=== PATIENT | female | born 1960 | race African-American/Black ===

== ENCOUNTER → 2017-10-05 15:17 | Outpatient (CLI) | payer OTHER, SELFPAY ==
--- NOTE | 2017-10-05 15:23 | DI.MG.S_ITS ---
BILATERAL DIGITAL SCREENING MAMMOGRAM 3D/2D WITH CAD: 10/05/2017 CLINICAL: Routine screening. Family history of breast cancer. Comparison is made to exams dated: 02/15/2016 mammogram, 03/02/2014 mammogram, and 02/01/2013 mammogram - [facility]. The tissue of both breasts is heterogeneously dense. This may lower the sensitivity of mammography. Current study was also evaluated with a Computer Aided Detection (CAD) system. There is a benign intramammary node in the upper outer right breast at posterior depth which demonstrates a fatty hilum on RMLO Tomosynthesis slice 10/57. No significant masses, calcifications, or other findings are seen in either breast. IMPRESSION: BENIGN There is no mammographic evidence of malignancy. A 1 year screening mammogram is recommended. This exam was interpreted at Station ID: [id number]. NOTE: For mammograms, a report in lay terms will be sent to the patient. Approximately 15% of breast malignancies will not be visualized mammographically. In the management of a palpable breast mass, a negative mammogram must not discourage biopsy of a clinically suspicious lesion. Electronically Signed By: Stevan Harris M.D. ecl/:10/05/2017 20:56:53 letter sent: Normal Exam ACR BI-RADS Category 2: Benign Finding(s) 3342F
== END ==
PROVIDERS: PCP Nurse Practitioner Family; Visit Provider Nurse Practitioner Family
DX: Z12.31 Encounter for screening mammogram for malignant neoplasm of breast (principal); Z80.3 Family history of malignant neoplasm of breast
CPT/HCPCS: 77063; 77067

== ENCOUNTER → 2018-03-01 19:58 | Outpatient (CLI) | payer OTHER, SELFPAY ==
--- NOTE | 2018-03-01 20:01 | DI.RAD.S_ITS ---
PROCEDURE: XR CHEST 2V INDICATIONS: cough and lymph node swelling TECHNIQUE: 2 views of the chest were acquired. COMPARISON: None. FINDINGS: Surgical changes and devices: None. Lungs and pleura: No pleural effusions or pneumothorax. Lungs are clear. Mediastinum: Mediastinal contours are normal. Heart size is normal. Bones and chest wall: No suspicious bony abnormalities. Soft tissues appear unremarkable. IMPRESSION: Normal for age, source of current cough symptoms is not seen. Dictated by: Frank Garcia M.D. on 03/02/2018 at 8:31 Approved by: Frank Garcia M.D. on 03/02/2018 at 8:32
== END ==
PROVIDERS: PCP Nurse Practitioner Family; Visit Provider Physician Assistant
DX: R05 Cough (principal); R59.0 Localized enlarged lymph nodes
CPT/HCPCS: 71046

== ENCOUNTER → 2018-03-16 12:07 | Outpatient (CLI) | payer OTHER, BC, SELFPAY ==
--- NOTE | 2018-03-16 | DI.CT.S_ITS ---
PROCEDURE: CT SOFT TISSUE NECK W CON INDICATIONS: LEFT NECK MASS TECHNIQUE: After the administration of intravenous contrast, 3.0 mm axial sections acquired from the sella to the aortic arch. Additional oblique axial 3.0 mm sections acquired through the pharynx. 3 mm thick coronal and sagittal reformats were generated. For radiation dose reduction, the following was used: automated exposure control. COMPARISON: [facility], CT, SOFT TISSUE NECK W CONTRAST, 03/25/2013, 10:31. FINDINGS: Image quality: Excellent. Lymph nodes: The site of the clinically palpable left neck mass is marked by a soft tissue marker, as on series 2 image 42. At this site, a normal appearing (not enlarged) lymph node can be seen, measuring 7 x 5 mm in greatest axial dimension. Several borderline prominent lymph nodes can be seen throughout the neck. Overall, these lymph nodes are smaller than in 2014. Vessels: Visualized vasculature appears patent. Neck spaces: The oropharynx, nasopharynx, and pharynx demonstrate no mucosal lesions. The vocal cords, false vocal cords, pyriform sinuses, epiglottis, vallecula, and tongue base all appear normal. Glands: The parotid and submandibular glands appear normal. Thyroid gland demonstrates no significant CT abnormality. Miscellaneous: Visualized brain and orbits appear normal. There is a subpleural nodule seen involving the left upper lobe anteriorly, as on series 3 image 34 that measures 5 mm. This is not seen on the 2014 study. Superficial soft tissues appear normal. Bones: No suspicious bony lesions. Visualized sinuses and mastoids appear unremarkable. IMPRESSION: There is a nonenlarged lymph node seen at the site of the clinically palpable abnormality. Several borderline prominent lymph nodes are seen throughout the neck, which are overall smaller than in 2014. Incidental note is made of a single subpleural 5 mm nodule within the left upper lobe, which most likely represents a subpleural lymph node. At clinical discretion, please consider a dedicated chest CT for further evaluation for additional potential pulmonary nodules elsewhere. Dictated by: Ismael Hines M.D. on 03/16/2018 at 14:37 Approved by: Ismael Hines M.D. on 03/16/2018 at 14:43
== END ==
PROVIDERS: PCP Nurse Practitioner Family; Visit Provider Otolaryngology
DX: R22.1 Localized swelling, mass and lump, neck (principal)
CPT/HCPCS: 70491; Q9967

== ENCOUNTER 2018-10-13 16:45 | Outpatient (RCR) | payer BC, SELFPAY ==
--- NOTE | 2018-09-09 17:00 | PT.OIE ---
Current Diagnoses Pain in thoracic spine (09/09/18) Past Medical History (Last Reviewed 08/13/18 @ 10:52 by Marito Turcios MD) Eczema (Chronic ~2007) Vision disorder (Chronic) Past Surgical History (Last Reviewed 08/13/18 @ 10:52 by Marito Turcios MD) Anesthesia (Resolved) History of foot surgery (Inactive) History of third molar tooth extraction (Inactive) Status post breast biopsy (Inactive ~1978) Provider Visit Care Team Role Provider Type Marito Turcios MD Attending Provider Physician Primary Care Provider Specialty: Internal Medicine Address: [address] [place] [address], [facility] Email: [email or web address] Physical Therapy Initial Evaluation PT-OP-A Visit Information Start: 09/09/18 12:33 Freq: Status: Active Protocol: Document 09/09/18 15:01 LRN (Rec: 09/09/18 16:33 LRN [id number]) Out-Patient Physical Therapy Visit Information Visit Information Visit Type Initial Evaluation Visit Start Time 15:02 Visit Stop Time 16:00 Total Visit Minutes 58 Visit Number 1 Number of PSYCHIATRIC ASSISTANT Visits 0 Evaluation Information Evaluation Date 09/09/18 Precautions Precautions Hx of Oral surgery for L jaw cyst and 5 yrs later a benign tumor. PT-OP-B Current Condition Start: 09/09/18 12:33 Freq: Status: Active Protocol: Document 09/09/18 15:01 LRN (Rec: 09/09/18 16:33 LRN [id number]) Current Condition History of Current Condition Onset Date December 2017 Current Complaints Ache pain in the neck, posterior upper back across shoulders and radiates History of Current Condition Insidious onset of upper neck and posterior shoulder pain, bilaterally. Sometimes it radiates into the R shoulder and back of the arm. Pt is R handed. She thinks maybe it is because of ergonomics at work. No longer has that job of sitting at a desk. 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 She doesn't have to sit as much and can sit or stand to work. Overuse of R arm causes pain. Only supine lying alleviates the pain. Prior Treatments and Tests Did patient care representative for 3 months without resolution or help of pain alleviation. Chiropractic X-rays and was told she was not aligned. Massages have not helped. Future Testing and Treatments Planned Next appt with Dr Turcios is 09/23/18, but pt is planning on extending the date until at least 4 weeks of therapy is done. Treatment Goals Patient/Caregiver Goals Pt goal is to determine the problem and to treat it for full resolution of pain. Prior Functional Status Baseline Function- ADL's Independent Baseline Function- Mobility Independent Baseline Function- Recreation/Hobbies Play golf Current Functional Impairments (Reported) Functional Limitations- Work/School Hindering pt's capacity to function at full capacity. Functional Limitations- Recreation/ Limited in tolerance to knit Hobbies 15'. 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 R Breast surgery 1978 for benign tumor removal Foot surgeries. PT-OP-C Subjective Start: 09/09/18 12:33 Freq: Status: Active Protocol: Document 09/09/18 15:01 LRN (Rec: 09/09/18 16:33 LRN [id number]) Patient Questionnaires Neck Disability Index NDI Score 5 Neck Disability Index Impairment 1 to 19% Impaired (Score 1-9) Oswestry Low Back Index Oswestry Score 9 Oswestry Impairment 1 to 19% Impaired (Score 1-19) Quick Dash- Upper Extremity Quick Dash UE Score 16 Quick Dash UE Impairment 1 to 19% Impaired (Score 1-19) OP-PT Pain Assessment Pain Assessment Grid Paper Pain Assessment Grid Completed Yes Location R shoulder Pain Location Details Posterior R shoulder Intensity 5 Scale Used Numeric (1 - 10) Description Aching Burning Frequency Intermittent Pain Aggravating Factors Activity Pain Alleviating Factors Medication Lying Supine Other Pain Alleviating Factors IBP Patient Stated Pain Goal Painfree Between shoulder blades Pain Location Details Mauricio Posterior scapula and intrascapular region Intensity 4 Description Aching Burning Radiating Tingling Frequency Intermittent Radiating Location R shoulder and posterior arm Variations/Patterns 0-4/10 Pain Aggravating Factors Activity Pain Alleviating Factors Medication Lying Supine Other Pain Alleviating Factors IBP Patient Stated Pain Goal Painfree PT-OP-E Functional Tests Start: 09/09/18 12:33 Freq: Status: Active Protocol: Document 09/09/18 15:01 LRN (Rec: 09/09/18 16:33 LRN [id number]) Functional Tests Apley's Scratch Test Action 2- Left T3 Action 2- Right T4 Action 3- Left T4 Action 3- Right T4 PT-OP-F Manual Assessment Start: 09/09/18 12:33 Freq: Status: Active Protocol: Document 09/09/18 15:01 LRN (Rec: 09/09/18 16:33 LRN [id number]) Manual Assessments Soft Tissue Assessment Soft Tissue Mobility Assessment Muscle guarding in R intrascapular region. Joint Mobility Assessment Joint Mobility Assessment Decreased T/S facet joint mobility on left for inferior glide & extension. T/S facets stuck in R rotation . PT-OP-H Neuro Start: 09/09/18 12:33 Freq: Status: Active Protocol: Document 09/09/18 15:01 LRN (Rec: 09/09/18 16:33 LRN [id number]) Sensation Evaluation Gross Sensation Gross Sensation WNL PT-OP-J Posture/Palpation/Skin Start: 09/09/18 12:33 Freq: Status: Active Protocol: Document 09/09/18 15:01 LRN (Rec: 09/09/18 16:33 LRN [id number]) Posture Evaluation Position Standing Evaluation View All positions Head/C-Spine Posture Side Bent Left Forward Head T-Spine Posture Flattened Rotation Right Shoulder Posture (L) Rounded Arm Posture (L) Internally Rotated (R) Internally Rotated Pelvis Posture Anteriorly Tilted Weight Distribution Balanced Palpation Assessment Location L Intrascapular region Palpation Location R Intrascapular region Palpation Findings Soft Tissue Tightness L neck Palpation Location Paraspinals, and anterior/ posterior scalenes UT Palpation Findings Soft Tissue Tightness Tenderness R Intrascapular region Palpation Location R intrascapular region Palpation Findings Soft Tissue Tightness Tenderness PT-OP-K Range of Motion Start: 09/09/18 12:33 Freq: Status: Active Protocol: Document 09/09/18 15:01 LRN (Rec: 09/09/18 16:33 LRN [id number]) Cervical Spine Range of Motion Cervical Spine Active Percentage Testing Position Sitting Flexion 100 Extension 100 Rotation Left 100 Rotation Right 100 Lateral Flexion Left 84 Lateral Flexion Right 100 ROM Limitations Soft Tissue Tightness Comments AROM (in degrees): SB: 32 deg' s left, 38 deg's right. Lumbar Spine Range of Motion Lumbar Spine Active Degrees Testing Position Standing Comments Movement measured from C7 to L5. Trunk Flexion: 150 deg's FB taken at C7 with 110 deg's FB taken at L5 Trunk Ext: 75 deg's BB taken at C7 with 30 deg's BB taken at L5 Sidebending: Left - Thoracic spine is straight, Right - Thoracic spine is curved. Rotation: Left - Thoracic spine is straight, Right - Thoracic spine is curved. Shoulder Goniometric Range of Motion Shoulder Right Active Shoulder ROM WFL Yes Testing Position Sitting Internal Rotation Behind Back (text) T4 with thumb Left Active Shoulder ROM WFL Yes Testing Position Sitting Flexion 178 Internal Rotation Behind Back (text) T4 with thumb Shoulder ROM Limitations Shoulder ROM Limitations Soft Tissue Tightness Comments L shoulder flexion PT-OP-M Strength Start: 09/09/18 12:33 Freq: Status: Active Protocol: Document 09/09/18 15:01 LRN (Rec: 09/09/18 16:33 LRN [id number]) Cervical Spine Strength Cervical Spine Manual Muscle Testing Testing Position Sitting Reason Not Measured WFL Trunk Strength Trunk Manual Muscle Testing Testing Position Sitting Shoulder Strength Shoulder Manual Muscle Testing Right Reason Not Measured WFL Comments Pain on Contralateral intrascapular region (T3-T5) with testing. Pt is R hand dominant. Left Reason Not Measured WFL Comments Pain on Contralateral intrascapular region (T3-T5) with testing. PT-OP-Q Treatments Start: 09/09/18 12:33 Freq: Status: Active Protocol: Document 09/09/18 15:01 LRN (Rec: 09/09/18 16:33 LRN [id number]) Therapeutic Exercises Standing Exercises Posterior shoulder stretch Standing Exercise Name L arm reaching over R shoulder with assist given to L elbow Side left Comments Pt unable to feel a intrascapular stretch; therefore DC'd. Doorway stretch Standing Exercise Name Rhomboid stretch Side left Equipment Used Doorway Manual Therapy Treatment Joint Mobilizations Thoracic Spine Joint T3 on T4 Direction To correct for a R rotated spine Grade II Body Position Prone Comments Pt had onset of pain; therefore discontinued for now . Self-Care/Home Management Treatment Education Patient Education Home Exercise Program Posture Other Education Educated pt in proper sitting posture to prevent slouching and I/S pt in proper sitting posture. Activities Self-Care/Home Management Activities I/S and reviewed for HEP: doorway stretch for L intrascapular region. PT-OP-T Assessment and Plan Start: 09/09/18 12:33 Freq: Status: Active Protocol: Document 09/09/18 15:01 LRN (Rec: 09/09/18 16:33 LRN [id number]) Physical Therapy Assessment Rehab Potential Rehabilitation Potential Good Evaluation Complexity Number of Personal Factors/Comorbidities 1-2 Number of Body Systems Impaired 4 or More Clinical Presentation at Evaluation Evolving Impairments Impairments Activity Tolerance Pain Posture Soft Tissue Mobility Strength Other Concerns Barriers to Rehabilitation Attendance may be a hindrance due to new work schedule, with pt coming after work from [place]. Goals Five Impairment Pt demonstrates poor awareness of proper posturing during sitting/work. Short Term Goal (STG) Pt will be able to demonstrate while in therapy proper sitting posture and will report improved posture sitting at her monitor at work . STG Duration 10/07/18 Four Impairment Pain limiting pt's ability to lift her golf clubs Staff Assistant Goal (LTG) Pt will be able to return to golfing at her prior level of function. LTG Duration 11/11/18 Three Impairment Pt pain limiting ability to knit > 15' Staff Assistant Goal (LTG) Pt will be able to knit no less than 45' or at prior level of function without pain . LTG Duration 11/11/18 Two Impairment Intermittent Neck, upper back pain rated 4/10 at worst Short Term Goal (STG) Decrease onset of pain and decrease pain to no greater than 2/10 STG Duration 10/07/18 Staff Assistant Goal (LTG) Decrease neck & upper back pain to 0/10 with ADLs and work. LTG Duration 11/11/18 One Impairment Lacks appropriate HEP. Staff Assistant Goal (LTG) Pt will be independent with a self care HEP. LTG Duration 11/11/18 Assessment Summary Assessment Pt presents with a mechanical dysfunction of the Thoracic spine, a notable Dowagers hump , a R rotation of T3-T7, soft tissue dysfunction and pain with UE use. Pt has mild decrease in Cervical R sidebend, otherwise cervical mobility and strength is normal. Her shoulder mobility is slightly limited with combined mobility of ER/AB and her strength although not limited, it is hindered by intrascapular pain on the opposite side of arm usage. The pt also demonstrates poor awareness of correct posturing in sitting; therefore effecting her during her while at work and post work hours. The pt will benefit from skilled physical therapy to improve thoracic positioning and stabilization in order to decrease pain with UE use and posturing. Physical Therapy Plan Frequency and Duration Frequency of Treatment 2x/Week Plan of Care Start Date 09/09/18 Plan of Care End Date 11/11/18 Therapeutic Interventions Therapeutic Interventions Aquatic Therapy Home Exercise Program Joint Mobilizations Manual Therapy Neuromuscular Re-education Patient/Caregiver Education Self-Care/Home Management Soft Tissue Mobilization Taping Therapeutic Exercises Modalities Cold Pack/Ice Massage Electric Stimulation Hot Packs Ultrasound Next Visit Focus/Plan Next Note Type Treatment Note Next Visit Plan Check UE strength (C6 - T1), and UE gross sensation/reflex. Might try starting with intrascapular STM to decrease muscle tension, followed by manual therapy for thoracic distraction and correction for a R rotated T/S and restricted ext mobility on the left. End with Interferential and Hot or cold to T/S, until mechanical dysfunction corrected, then progress to strengthening for stabilization.
--- NOTE | 2018-09-13 17:13 | PT.OTN ---
Current Diagnoses Pain in thoracic spine (09/13/18) Physical Therapy Treatment Note PT-OP-A Visit Information Start: 09/09/18 12:33 Freq: Status: Active Protocol: Document 09/13/18 17:03 EA (Rec: 09/13/18 17:13 EA [id number]) Out-Patient Physical Therapy Visit Information Visit Information Visit Type Treatment Note Visit Start Time 15:15 Visit Stop Time 16:00 Total Visit Minutes 38 Visit Number 2 PT-OP-B Current Condition Start: 09/09/18 12:33 Freq: Status: Active Protocol: Document 09/09/18 15:01 LRN (Rec: 09/09/18 16:33 LRN [id number]) Current Condition History of Current Condition Onset Date December 2017 Current Complaints Ache pain in the neck, posterior upper back across shoulders and radiates History of Current Condition Insidious onset of upper neck and posterior shoulder pain, bilaterally. Sometimes it radiates into the R shoulder and back of the arm. Pt is R handed. She thinks maybe it is because of ergonomics at work. No longer has that job of sitting at a desk. 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 She doesn't have to sit as much and can sit or stand to work. Overuse of R arm causes pain. Only supine lying alleviates the pain. Prior Treatments and Tests Did medication care manager for 3 months without resolution or help of pain alleviation. Chiropractic X-rays and was told she was not aligned. Massages have not helped. Future Testing and Treatments Planned Next appt with Dr Turcios is 09/23/18, but pt is planning on extending the date until at least 4 weeks of therapy is done. Treatment Goals Patient/Caregiver Goals Pt goal is to determine the problem and to treat it for full resolution of pain. Prior Functional Status Baseline Function- ADL's Independent Baseline Function- Mobility Independent Baseline Function- Recreation/Hobbies Play golf Current Functional Impairments (Reported) Functional Limitations- Work/School Hindering pt's capacity to function at full capacity. Functional Limitations- Recreation/ Limited in tolerance to knit Hobbies 15'. 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 R Breast surgery 1978 for benign tumor removal Foot surgeries. PT-OP-C Subjective Start: 09/09/18 12:33 Freq: Status: Active Protocol: Document 09/13/18 17:03 EA (Rec: 09/13/18 17:13 EA [id number]) OP-PT Subjective Patient Comments Patient Comments Pt reports intermittent right finger tingling sensation. Patient Reported Progress Same PT-OP-E Functional Tests Start: 09/09/18 12:33 Freq: Status: Active Protocol: Document 09/09/18 15:01 LRN (Rec: 09/09/18 16:33 LRN [id number]) Functional Tests Apley's Scratch Test Action 2- Left T3 Action 2- Right T4 Action 3- Left T4 Action 3- Right T4 PT-OP-F Manual Assessment Start: 09/09/18 12:33 Freq: Status: Active Protocol: Document 09/09/18 15:01 LRN (Rec: 09/09/18 16:33 LRN [id number]) Manual Assessments Soft Tissue Assessment Soft Tissue Mobility Assessment Muscle guarding in R intrascapular region. Joint Mobility Assessment Joint Mobility Assessment Decreased T/S facet joint mobility on left for inferior glide & extension. T/S facets stuck in R rotation . PT-OP-H Neuro Start: 09/09/18 12:33 Freq: Status: Active Protocol: Document 09/09/18 15:01 LRN (Rec: 09/09/18 16:33 LRN [id number]) Sensation Evaluation Gross Sensation Gross Sensation WNL PT-OP-J Posture/Palpation/Skin Start: 09/09/18 12:33 Freq: Status: Active Protocol: Document 09/09/18 15:01 LRN (Rec: 09/09/18 16:33 LRN [id number]) Posture Evaluation Position Standing Evaluation View All positions Head/C-Spine Posture Side Bent Left Forward Head T-Spine Posture Flattened Rotation Right Shoulder Posture (L) Rounded Arm Posture (L) Internally Rotated (R) Internally Rotated Pelvis Posture Anteriorly Tilted Weight Distribution Balanced Palpation Assessment Location L Intrascapular region Palpation Location R Intrascapular region Palpation Findings Soft Tissue Tightness L neck Palpation Location Paraspinals, and anterior/ posterior scalenes UT Palpation Findings Soft Tissue Tightness Tenderness R Intrascapular region Palpation Location R intrascapular region Palpation Findings Soft Tissue Tightness Tenderness PT-OP-K Range of Motion Start: 09/09/18 12:33 Freq: Status: Active Protocol: Document 09/09/18 15:01 LRN (Rec: 09/09/18 16:33 LRN [id number]) Cervical Spine Range of Motion Cervical Spine Active Percentage Testing Position Sitting Flexion 100 Extension 100 Rotation Left 100 Rotation Right 100 Lateral Flexion Left 84 Lateral Flexion Right 100 ROM Limitations Soft Tissue Tightness Comments AROM (in degrees): SB: 32 deg' s left, 38 deg's right. Lumbar Spine Range of Motion Lumbar Spine Active Degrees Testing Position Standing Comments Movement measured from C7 to L5. Trunk Flexion: 150 deg's FB taken at C7 with 110 deg's FB taken at L5 Trunk Ext: 75 deg's BB taken at C7 with 30 deg's BB taken at L5 Sidebending: Left - Thoracic spine is straight, Right - Thoracic spine is curved. Rotation: Left - Thoracic spine is straight, Right - Thoracic spine is curved. Shoulder Goniometric Range of Motion Shoulder Right Active Shoulder ROM WFL Yes Testing Position Sitting Internal Rotation Behind Back (text) T4 with thumb Left Active Shoulder ROM WFL Yes Testing Position Sitting Flexion 178 Internal Rotation Behind Back (text) T4 with thumb Shoulder ROM Limitations Shoulder ROM Limitations Soft Tissue Tightness Comments L shoulder flexion PT-OP-M Strength Start: 09/09/18 12:33 Freq: Status: Active Protocol: Document 09/09/18 15:01 LRN (Rec: 09/09/18 16:33 LRN [id number]) Cervical Spine Strength Cervical Spine Manual Muscle Testing Testing Position Sitting Reason Not Measured WFL Trunk Strength Trunk Manual Muscle Testing Testing Position Sitting Shoulder Strength Shoulder Manual Muscle Testing Right Reason Not Measured WFL Comments Pain on Contralateral intrascapular region (T3-T5) with testing. Pt is R hand dominant. Left Reason Not Measured WFL Comments Pain on Contralateral intrascapular region (T3-T5) with testing. PT-OP-Q Treatments Start: 09/09/18 12:33 Freq: Status: Active Protocol: Document 09/13/18 17:03 JAMES (Rec: 09/13/18 17:13 EA [id number]) Manual Therapy Treatment Soft Tissue Mobilization 1 Body Location Both traps, B Parcervicals and parathracis, B rhomboids, B scapular borders Mobilization Type Myofascial Release Rolling Sustained Pressure Trigger Point Release Intensity/Depth Moderate Body Position Prone PT-OP-R Modalities Start: 09/09/18 12:33 Freq: Status: Active Protocol: Document 09/13/18 17:03 EA (Rec: 09/13/18 17:13 EA [id number]) Electric Stimulation Electric Stimulation Interferential Current (IFC) Body Location Both Rhomboids, Parathoracis Duration (Minutes) 15 Intensity 16 Combined With Heat/Cold Hot Pack PT-OP-T Assessment and Plan Start: 09/09/18 12:33 Freq: Status: Active Protocol: Document 09/13/18 17:03 EA (Rec: 09/13/18 17:13 EA [id number]) Physical Therapy Assessment Assessment Summary Assessment Tolerated treatment well. Physical Therapy Plan Next Visit Focus/Plan Next Note Type Treatment Note Next Visit Plan Check UE strength (C6 - T1), and UE gross sensation/reflex. Might try starting with intrascapular STM to decrease muscle tension, followed by manual therapy for thoracic distraction and correction for a R rotated T/S and restricted ext mobility on the left. End with Interferential and Hot or cold to T/S, until mechanical dysfunction corrected, then progress to strengthening for stabilization.
--- NOTE | 2018-09-15 16:16 | PT.OTN ---
Current Diagnoses Pain in thoracic spine (09/15/18) Physical Therapy Treatment Note PT-OP-A Visit Information Start: 09/09/18 12:33 Freq: Status: Active Protocol: Document 09/15/18 15:50 EA (Rec: 09/15/18 15:54 EA [id number]) Out-Patient Physical Therapy Visit Information Visit Information Visit Type Treatment Note Visit Start Time 15:15 Visit Stop Time 16:00 Total Visit Minutes 40 Visit Number 3 PT-OP-B Current Condition Start: 09/09/18 12:33 Freq: Status: Active Protocol: Document 09/09/18 15:01 LRN (Rec: 09/09/18 16:33 LRN [id number]) Current Condition History of Current Condition Onset Date December 2017 Current Complaints Ache pain in the neck, posterior upper back across shoulders and radiates History of Current Condition Insidious onset of upper neck and posterior shoulder pain, bilaterally. Sometimes it radiates into the R shoulder and back of the arm. Pt is R handed. She thinks maybe it is because of ergonomics at work. No longer has that job of sitting at a desk. 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 She doesn't have to sit as much and can sit or stand to work. Overuse of R arm causes pain. Only supine lying alleviates the pain. Prior Treatments and Tests Did customer care representative for 3 months without resolution or help of pain alleviation. Chiropractic X-rays and was told she was not aligned. Massages have not helped. Future Testing and Treatments Planned Next appt with Dr Turcios is 09/23/18, but pt is planning on extending the date until at least 4 weeks of therapy is done. Treatment Goals Patient/Caregiver Goals Pt goal is to determine the problem and to treat it for full resolution of pain. Prior Functional Status Baseline Function- ADL's Independent Baseline Function- Mobility Independent Baseline Function- Recreation/Hobbies Play golf Current Functional Impairments (Reported) Functional Limitations- Work/School Hindering pt's capacity to function at full capacity. Functional Limitations- Recreation/ Limited in tolerance to knit Hobbies 15'. 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 R Breast surgery 1978 for benign tumor removal Foot surgeries. PT-OP-C Subjective Start: 09/09/18 12:33 Freq: Status: Active Protocol: Document 09/15/18 15:50 EA (Rec: 09/15/18 15:54 EA [id number]) OP-PT Subjective Patient Comments Patient Comments I'm surprised that Im not sore after last session. PT-OP-E Functional Tests Start: 09/09/18 12:33 Freq: Status: Active Protocol: Document 09/09/18 15:01 LRN (Rec: 09/09/18 16:33 LRN [id number]) Functional Tests Apley's Scratch Test Action 2- Left T3 Action 2- Right T4 Action 3- Left T4 Action 3- Right T4 PT-OP-F Manual Assessment Start: 09/09/18 12:33 Freq: Status: Active Protocol: Document 09/09/18 15:01 LRN (Rec: 09/09/18 16:33 LRN [id number]) Manual Assessments Soft Tissue Assessment Soft Tissue Mobility Assessment Muscle guarding in R intrascapular region. Joint Mobility Assessment Joint Mobility Assessment Decreased T/S facet joint mobility on left for inferior glide & extension. T/S facets stuck in R rotation . PT-OP-H Neuro Start: 09/09/18 12:33 Freq: Status: Active Protocol: Document 09/09/18 15:01 LRN (Rec: 09/09/18 16:33 LRN [id number]) Sensation Evaluation Gross Sensation Gross Sensation WNL PT-OP-J Posture/Palpation/Skin Start: 09/09/18 12:33 Freq: Status: Active Protocol: Document 09/09/18 15:01 LRN (Rec: 09/09/18 16:33 LRN [id number]) Posture Evaluation Position Standing Evaluation View All positions Head/C-Spine Posture Side Bent Left Forward Head T-Spine Posture Flattened Rotation Right Shoulder Posture (L) Rounded Arm Posture (L) Internally Rotated (R) Internally Rotated Pelvis Posture Anteriorly Tilted Weight Distribution Balanced Palpation Assessment Location L Intrascapular region Palpation Location R Intrascapular region Palpation Findings Soft Tissue Tightness L neck Palpation Location Paraspinals, and anterior/ posterior scalenes UT Palpation Findings Soft Tissue Tightness Tenderness R Intrascapular region Palpation Location R intrascapular region Palpation Findings Soft Tissue Tightness Tenderness PT-OP-K Range of Motion Start: 09/09/18 12:33 Freq: Status: Active Protocol: Document 09/09/18 15:01 LRN (Rec: 09/09/18 16:33 LRN [id number]) Cervical Spine Range of Motion Cervical Spine Active Percentage Testing Position Sitting Flexion 100 Extension 100 Rotation Left 100 Rotation Right 100 Lateral Flexion Left 84 Lateral Flexion Right 100 ROM Limitations Soft Tissue Tightness Comments AROM (in degrees): SB: 32 deg' s left, 38 deg's right. Lumbar Spine Range of Motion Lumbar Spine Active Degrees Testing Position Standing Comments Movement measured from C7 to L5. Trunk Flexion: 150 deg's FB taken at C7 with 110 deg's FB taken at L5 Trunk Ext: 75 deg's BB taken at C7 with 30 deg's BB taken at L5 Sidebending: Left - Thoracic spine is straight, Right - Thoracic spine is curved. Rotation: Left - Thoracic spine is straight, Right - Thoracic spine is curved. Shoulder Goniometric Range of Motion Shoulder Right Active Shoulder ROM WFL Yes Testing Position Sitting Internal Rotation Behind Back (text) T4 with thumb Left Active Shoulder ROM WFL Yes Testing Position Sitting Flexion 178 Internal Rotation Behind Back (text) T4 with thumb Shoulder ROM Limitations Shoulder ROM Limitations Soft Tissue Tightness Comments L shoulder flexion PT-OP-M Strength Start: 09/09/18 12:33 Freq: Status: Active Protocol: Document 09/09/18 15:01 LRN (Rec: 09/09/18 16:33 LRN [id number]) Cervical Spine Strength Cervical Spine Manual Muscle Testing Testing Position Sitting Reason Not Measured WFL Trunk Strength Trunk Manual Muscle Testing Testing Position Sitting Shoulder Strength Shoulder Manual Muscle Testing Right Reason Not Measured WFL Comments Pain on Contralateral intrascapular region (T3-T5) with testing. Pt is R hand dominant. Left Reason Not Measured WFL Comments Pain on Contralateral intrascapular region (T3-T5) with testing. PT-OP-Q Treatments Start: 09/09/18 12:33 Freq: Status: Active Protocol: Document 09/15/18 15:50 EA (Rec: 09/15/18 15:54 EA [id number]) Manual Therapy Treatment Soft Tissue Mobilization 1 Body Location Both traps, B Parcervicals and parathracis, B rhomboids, B scapular borders Mobilization Type Myofascial Release Rolling Sustained Pressure Trigger Point Release Intensity/Depth Moderate Body Position Prone PT-OP-R Modalities Start: 09/09/18 12:33 Freq: Status: Active Protocol: Document 09/15/18 15:50 EA (Rec: 09/15/18 15:54 EA [id number]) Electric Stimulation Electric Stimulation Interferential Current (IFC) Body Location Both Rhomboids, Parathoracis Duration (Minutes) 15 Intensity 23 Combined With Heat/Cold Hot Pack PT-OP-T Assessment and Plan Start: 09/09/18 12:33 Freq: Status: Active Protocol: Document 09/15/18 15:50 EA (Rec: 09/15/18 15:54 EA [id number]) Physical Therapy Assessment Assessment Summary Assessment Patient had less tender spots at this time. Cont. with current plan. Physical Therapy Plan Next Visit Focus/Plan Next Note Type Treatment Note Next Visit Plan Begin with postural execises
--- NOTE | 2018-09-20 16:31 | PT.OTN ---
Current Diagnoses Pain in thoracic spine (09/20/18) Physical Therapy Treatment Note PT-OP-A Visit Information Start: 09/09/18 12:33 Freq: Status: Active Protocol: Document 09/20/18 10:26 AMB (Rec: 09/20/18 10:29 AMB [id number]) Out-Patient Physical Therapy Visit Information Visit Information Visit Type Treatment Note Visit Start Time 07:30 Visit Stop Time 08:30 Total Visit Minutes 60 Visit Number 4 PT-OP-B Current Condition Start: 09/09/18 12:33 Freq: Status: Active Protocol: Document 09/09/18 15:01 LRN (Rec: 09/09/18 16:33 LRN [id number]) Current Condition History of Current Condition Onset Date December 2017 Current Complaints Ache pain in the neck, posterior upper back across shoulders and radiates History of Current Condition Insidious onset of upper neck and posterior shoulder pain, bilaterally. Sometimes it radiates into the R shoulder and back of the arm. Pt is R handed. She thinks maybe it is because of ergonomics at work. No longer has that job of sitting at a desk. 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 She doesn't have to sit as much and can sit or stand to work. Overuse of R arm causes pain. Only supine lying alleviates the pain. Prior Treatments and Tests Did health care facility administrator for 3 months without resolution or help of pain alleviation. Chiropractic X-rays and was told she was not aligned. Massages have not helped. Future Testing and Treatments Planned Next appt with Dr Turcios is 09/23/18, but pt is planning on extending the date until at least 4 weeks of therapy is done. Treatment Goals Patient/Caregiver Goals Pt goal is to determine the problem and to treat it for full resolution of pain. Prior Functional Status Baseline Function- ADL's Independent Baseline Function- Mobility Independent Baseline Function- Recreation/Hobbies Play golf Current Functional Impairments (Reported) Functional Limitations- Work/School Hindering pt's capacity to function at full capacity. Functional Limitations- Recreation/ Limited in tolerance to knit Hobbies 15'. 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 R Breast surgery 1978 for benign tumor removal Foot surgeries. PT-OP-C Subjective Start: 09/09/18 12:33 Freq: Status: Active Protocol: Document 09/20/18 10:26 AMB (Rec: 09/20/18 10:29 AMB [id number]) OP-PT Subjective Patient Comments Patient Comments I think I am getting a little better PT-OP-E Functional Tests Start: 09/09/18 12:33 Freq: Status: Active Protocol: Document 09/09/18 15:01 LRN (Rec: 09/09/18 16:33 LRN [id number]) Functional Tests Apley's Scratch Test Action 2- Left T3 Action 2- Right T4 Action 3- Left T4 Action 3- Right T4 PT-OP-F Manual Assessment Start: 09/09/18 12:33 Freq: Status: Active Protocol: Document 09/09/18 15:01 LRN (Rec: 09/09/18 16:33 LRN [id number]) Manual Assessments Soft Tissue Assessment Soft Tissue Mobility Assessment Muscle guarding in R intrascapular region. Joint Mobility Assessment Joint Mobility Assessment Decreased T/S facet joint mobility on left for inferior glide & extension. T/S facets stuck in R rotation . PT-OP-H Neuro Start: 09/09/18 12:33 Freq: Status: Active Protocol: Document 09/09/18 15:01 LRN (Rec: 09/09/18 16:33 LRN [id number]) Sensation Evaluation Gross Sensation Gross Sensation WNL PT-OP-J Posture/Palpation/Skin Start: 09/09/18 12:33 Freq: Status: Active Protocol: Document 09/09/18 15:01 LRN (Rec: 09/09/18 16:33 LRN [id number]) Posture Evaluation Position Standing Evaluation View All positions Head/C-Spine Posture Side Bent Left Forward Head T-Spine Posture Flattened Rotation Right Shoulder Posture (L) Rounded Arm Posture (L) Internally Rotated (R) Internally Rotated Pelvis Posture Anteriorly Tilted Weight Distribution Balanced Palpation Assessment Location L Intrascapular region Palpation Location R Intrascapular region Palpation Findings Soft Tissue Tightness L neck Palpation Location Paraspinals, and anterior/ posterior scalenes UT Palpation Findings Soft Tissue Tightness Tenderness R Intrascapular region Palpation Location R intrascapular region Palpation Findings Soft Tissue Tightness Tenderness PT-OP-K Range of Motion Start: 09/09/18 12:33 Freq: Status: Active Protocol: Document 09/09/18 15:01 LRN (Rec: 09/09/18 16:33 LRN [id number]) Cervical Spine Range of Motion Cervical Spine Active Percentage Testing Position Sitting Flexion 100 Extension 100 Rotation Left 100 Rotation Right 100 Lateral Flexion Left 84 Lateral Flexion Right 100 ROM Limitations Soft Tissue Tightness Comments AROM (in degrees): SB: 32 deg' s left, 38 deg's right. Lumbar Spine Range of Motion Lumbar Spine Active Degrees Testing Position Standing Comments Movement measured from C7 to L5. Trunk Flexion: 150 deg's FB taken at C7 with 110 deg's FB taken at L5 Trunk Ext: 75 deg's BB taken at C7 with 30 deg's BB taken at L5 Sidebending: Left - Thoracic spine is straight, Right - Thoracic spine is curved. Rotation: Left - Thoracic spine is straight, Right - Thoracic spine is curved. Shoulder Goniometric Range of Motion Shoulder Right Active Shoulder ROM WFL Yes Testing Position Sitting Internal Rotation Behind Back (text) T4 with thumb Left Active Shoulder ROM WFL Yes Testing Position Sitting Flexion 178 Internal Rotation Behind Back (text) T4 with thumb Shoulder ROM Limitations Shoulder ROM Limitations Soft Tissue Tightness Comments L shoulder flexion PT-OP-M Strength Start: 09/09/18 12:33 Freq: Status: Active Protocol: Document 09/09/18 15:01 LRN (Rec: 09/09/18 16:33 LRN [id number]) Cervical Spine Strength Cervical Spine Manual Muscle Testing Testing Position Sitting Reason Not Measured WFL Trunk Strength Trunk Manual Muscle Testing Testing Position Sitting Shoulder Strength Shoulder Manual Muscle Testing Right Reason Not Measured WFL Comments Pain on Contralateral intrascapular region (T3-T5) with testing. Pt is R hand dominant. Left Reason Not Measured WFL Comments Pain on Contralateral intrascapular region (T3-T5) with testing. PT-OP-Q Treatments Start: 09/09/18 12:33 Freq: Status: Active Protocol: Document 09/20/18 07:30 AMB (Rec: 09/20/18 16:30 AMB [id number]) Therapeutic Activity Therapeutic Activity 1 Name ergonomics body mechanics instruction Comments For sitting, cooking, Manual Therapy Treatment Soft Tissue Mobilization 1 Body Location Both traps, B Parcervicals and parathracis, B rhomboids, B scapular borders Mobilization Type Myofascial Release Rolling Sustained Pressure Trigger Point Release Intensity/Depth Moderate Body Position Prone Joint Mobilizations Thoracic Spine Joint T2-T6 Direction PAs Grade II Body Position Prone PT-OP-R Modalities Start: 09/09/18 12:33 Freq: Status: Active Protocol: Document 09/20/18 10:26 AMB (Rec: 09/20/18 10:29 AMB [id number]) Electric Stimulation Electric Stimulation Interferential Current (IFC) Body Location Both Rhomboids, Parathoracis Duration (Minutes) 15 Intensity 19 Combined With Heat/Cold Hot Pack PT-OP-T Assessment and Plan Start: 09/09/18 12:33 Freq: Status: Active Protocol: Document 09/20/18 10:26 AMB (Rec: 09/20/18 10:29 AMB [id number]) Physical Therapy Assessment Assessment Summary Assessment Continue to educate in body mechanics posture, continue manual therapy and progress to strengthening. Physical Therapy Plan Next Visit Focus/Plan Next Note Type Treatment Note Next Visit Plan Begin with postural execises
--- NOTE | 2018-09-23 17:58 | PT.OTN ---
Current Diagnoses Pain in thoracic spine (09/23/18) Physical Therapy Treatment Note PT-OP-A Visit Information Start: 09/09/18 12:33 Freq: Status: Active Protocol: Document 09/23/18 16:45 HH (Rec: 09/23/18 17:50 HH [email or web address]) Out-Patient Physical Therapy Visit Information Visit Information Visit Type Treatment Note Visit Start Time 16:45 Visit Stop Time 17:40 Total Visit Minutes 55 Visit Number 5 PT-OP-B Current Condition Start: 09/09/18 12:33 Freq: Status: Active Protocol: Document 09/09/18 15:01 LRN (Rec: 09/09/18 16:33 LRN [id number]) Current Condition History of Current Condition Onset Date December 2017 Current Complaints Ache pain in the neck, posterior upper back across shoulders and radiates History of Current Condition Insidious onset of upper neck and posterior shoulder pain, bilaterally. Sometimes it radiates into the R shoulder and back of the arm. Pt is R handed. She thinks maybe it is because of ergonomics at work. No longer has that job of sitting at a desk. 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 She doesn't have to sit as much and can sit or stand to work. Overuse of R arm causes pain. Only supine lying alleviates the pain. Prior Treatments and Tests Did customer care voice consultant for 3 months without resolution or help of pain alleviation. Chiropractic X-rays and was told she was not aligned. Massages have not helped. Future Testing and Treatments Planned Next appt with Dr Turcios is 09/23/18, but pt is planning on extending the date until at least 4 weeks of therapy is done. Treatment Goals Patient/Caregiver Goals Pt goal is to determine the problem and to treat it for full resolution of pain. Prior Functional Status Baseline Function- ADL's Independent Baseline Function- Mobility Independent Baseline Function- Recreation/Hobbies Play golf Current Functional Impairments (Reported) Functional Limitations- Work/School Hindering pt's capacity to function at full capacity. Functional Limitations- Recreation/ Limited in tolerance to knit Hobbies 15'. 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 R Breast surgery 1978 for benign tumor removal Foot surgeries. PT-OP-C Subjective Start: 09/09/18 12:33 Freq: Status: Active Protocol: Document 09/23/18 16:45 HH (Rec: 09/23/18 17:50 HH [email or web address]) OP-PT Subjective Patient Comments Patient Comments I am getting better until today. Im a bit sore PT-OP-E Functional Tests Start: 09/09/18 12:33 Freq: Status: Active Protocol: Document 09/09/18 15:01 LRN (Rec: 09/09/18 16:33 LRN [id number]) Functional Tests Apley's Scratch Test Action 2- Left T3 Action 2- Right T4 Action 3- Left T4 Action 3- Right T4 PT-OP-F Manual Assessment Start: 09/09/18 12:33 Freq: Status: Active Protocol: Document 09/09/18 15:01 LRN (Rec: 09/09/18 16:33 LRN [id number]) Manual Assessments Soft Tissue Assessment Soft Tissue Mobility Assessment Muscle guarding in R intrascapular region. Joint Mobility Assessment Joint Mobility Assessment Decreased T/S facet joint mobility on left for inferior glide & extension. T/S facets stuck in R rotation . PT-OP-H Neuro Start: 09/09/18 12:33 Freq: Status: Active Protocol: Document 09/09/18 15:01 LRN (Rec: 09/09/18 16:33 LRN [id number]) Sensation Evaluation Gross Sensation Gross Sensation WNL PT-OP-J Posture/Palpation/Skin Start: 09/09/18 12:33 Freq: Status: Active Protocol: Document 09/09/18 15:01 LRN (Rec: 09/09/18 16:33 LRN [id number]) Posture Evaluation Position Standing Evaluation View All positions Head/C-Spine Posture Side Bent Left Forward Head T-Spine Posture Flattened Rotation Right Shoulder Posture (L) Rounded Arm Posture (L) Internally Rotated (R) Internally Rotated Pelvis Posture Anteriorly Tilted Weight Distribution Balanced Palpation Assessment Location L Intrascapular region Palpation Location R Intrascapular region Palpation Findings Soft Tissue Tightness L neck Palpation Location Paraspinals, and anterior/ posterior scalenes UT Palpation Findings Soft Tissue Tightness Tenderness R Intrascapular region Palpation Location R intrascapular region Palpation Findings Soft Tissue Tightness Tenderness PT-OP-K Range of Motion Start: 09/09/18 12:33 Freq: Status: Active Protocol: Document 09/09/18 15:01 LRN (Rec: 09/09/18 16:33 LRN [id number]) Cervical Spine Range of Motion Cervical Spine Active Percentage Testing Position Sitting Flexion 100 Extension 100 Rotation Left 100 Rotation Right 100 Lateral Flexion Left 84 Lateral Flexion Right 100 ROM Limitations Soft Tissue Tightness Comments AROM (in degrees): SB: 32 deg' s left, 38 deg's right. Lumbar Spine Range of Motion Lumbar Spine Active Degrees Testing Position Standing Comments Movement measured from C7 to L5. Trunk Flexion: 150 deg's FB taken at C7 with 110 deg's FB taken at L5 Trunk Ext: 75 deg's BB taken at C7 with 30 deg's BB taken at L5 Sidebending: Left - Thoracic spine is straight, Right - Thoracic spine is curved. Rotation: Left - Thoracic spine is straight, Right - Thoracic spine is curved. Shoulder Goniometric Range of Motion Shoulder Right Active Shoulder ROM WFL Yes Testing Position Sitting Internal Rotation Behind Back (text) T4 with thumb Left Active Shoulder ROM WFL Yes Testing Position Sitting Flexion 178 Internal Rotation Behind Back (text) T4 with thumb Shoulder ROM Limitations Shoulder ROM Limitations Soft Tissue Tightness Comments L shoulder flexion PT-OP-M Strength Start: 09/09/18 12:33 Freq: Status: Active Protocol: Document 09/09/18 15:01 LRN (Rec: 09/09/18 16:33 LRN [id number]) Cervical Spine Strength Cervical Spine Manual Muscle Testing Testing Position Sitting Reason Not Measured WFL Trunk Strength Trunk Manual Muscle Testing Testing Position Sitting Shoulder Strength Shoulder Manual Muscle Testing Right Reason Not Measured WFL Comments Pain on Contralateral intrascapular region (T3-T5) with testing. Pt is R hand dominant. Left Reason Not Measured WFL Comments Pain on Contralateral intrascapular region (T3-T5) with testing. PT-OP-Q Treatments Start: 09/09/18 12:33 Freq: Status: Active Protocol: Document 09/23/18 16:45 HH (Rec: 09/23/18 17:50 HH [email or web address]) Therapeutic Exercises Prone Exercises prone scap retraction Side bilateral Reps/Minutes 10 x2 prone chin tuck Side bilateral Reps/Minutes 5 x 2 Comments cues on alignment Sitting Exercises seated chin tuck Side bilateral Equipment Used with towel on t1-T4 for PA mob Reps/Minutes 10 x 2 Comments cues on alignment Standing Exercises scap retraction Side bilateral Equipment Used level2 band Reps/Minutes 10 x 2 Comments cues on chin tuck Manual Therapy Treatment Soft Tissue Mobilization paraspinals Body Location paraspinals, trap Mobilization Type Myofascial Release Strumming Sustained Pressure Intensity/Depth Moderate Body Position Prone Comments at cervical and thoracic region Joint Mobilizations Thoracic Spine Joint T2-T6 Direction PAs Grade II Body Position Prone Manual Traction cervical traction Body Position Supine Reps/Duration 5 mins PT-OP-R Modalities Start: 09/09/18 12:33 Freq: Status: Active Protocol: Document 09/23/18 16:45 HH (Rec: 09/23/18 17:58 HH [email or web address]) Electric Stimulation Electric Stimulation Interferential Current (IFC) Body Location Both Rhomboids, Parathoracis Duration (Minutes) 15 Intensity 19 Combined With Heat/Cold Hot Pack PT-OP-T Assessment and Plan Start: 09/09/18 12:33 Freq: Status: Active Protocol: Document 09/23/18 16:45 HH (Rec: 09/23/18 17:50 HH [email or web address]) Physical Therapy Assessment Assessment Summary Assessment Pt has significant hypomobility at upper thoracic vertebraes. Pain did reduce with prone chin tuck during PA mob. Explained the formation of her dowager hump with skeleton model and provided pt with HEP ( chin tuck + self PA mob and scap retraction). Pt tiera tx well with no c/o. Physical Therapy Plan Next Visit Focus/Plan Next Note Type Treatment Note Next Visit Plan review HEP assess pt;s symptoms. Begin with postural execises
--- NOTE | 2018-10-06 18:40 | PT.OTN ---
Current Diagnoses Pain in thoracic spine (10/06/18) Physical Therapy Treatment Note PT-OP-A Visit Information Start: 09/09/18 12:33 Freq: Status: Active Protocol: Document 10/06/18 16:50 HH (Rec: 10/06/18 18:40 HH [email or web address]) Out-Patient Physical Therapy Visit Information Visit Information Visit Type Treatment Note Visit Start Time 16:50 Visit Stop Time 17:44 Total Visit Minutes 54 Visit Number 6 Number of DATABASE MARKETING SPECIALIST Visits 0 PT-OP-B Current Condition Start: 09/09/18 12:33 Freq: Status: Active Protocol: Document 09/09/18 15:01 LRN (Rec: 09/09/18 16:33 LRN [id number]) Current Condition History of Current Condition Onset Date December 2017 Current Complaints Ache pain in the neck, posterior upper back across shoulders and radiates History of Current Condition Insidious onset of upper neck and posterior shoulder pain, bilaterally. Sometimes it radiates into the R shoulder and back of the arm. Pt is R handed. She thinks maybe it is because of ergonomics at work. No longer has that job of sitting at a desk. 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 She doesn't have to sit as much and can sit or stand to work. Overuse of R arm causes pain. Only supine lying alleviates the pain. Prior Treatments and Tests Did pediatric care coordinator for 3 months without resolution or help of pain alleviation. Chiropractic X-rays and was told she was not aligned. Massages have not helped. Future Testing and Treatments Planned Next appt with Dr Turcios is 09/23/18, but pt is planning on extending the date until at least 4 weeks of therapy is done. Treatment Goals Patient/Caregiver Goals Pt goal is to determine the problem and to treat it for full resolution of pain. Prior Functional Status Baseline Function- ADL's Independent Baseline Function- Mobility Independent Baseline Function- Recreation/Hobbies Play golf Current Functional Impairments (Reported) Functional Limitations- Work/School Hindering pt's capacity to function at full capacity. Functional Limitations- Recreation/ Limited in tolerance to knit Hobbies 15'. 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 R Breast surgery 1978 for benign tumor removal Foot surgeries. PT-OP-C Subjective Start: 09/09/18 12:33 Freq: Status: Active Protocol: Document 10/06/18 16:50 HH (Rec: 10/06/18 18:40 HH [email or web address]) OP-PT Subjective Patient Comments Patient Comments Im getting better and no much of discomfort unless i sat in front of computer for a while . PT-OP-E Functional Tests Start: 09/09/18 12:33 Freq: Status: Active Protocol: Document 09/09/18 15:01 LRN (Rec: 09/09/18 16:33 LRN [id number]) Functional Tests Apley's Scratch Test Action 2- Left T3 Action 2- Right T4 Action 3- Left T4 Action 3- Right T4 PT-OP-F Manual Assessment Start: 09/09/18 12:33 Freq: Status: Active Protocol: Document 09/09/18 15:01 LRN (Rec: 09/09/18 16:33 LRN [id number]) Manual Assessments Soft Tissue Assessment Soft Tissue Mobility Assessment Muscle guarding in R intrascapular region. Joint Mobility Assessment Joint Mobility Assessment Decreased T/S facet joint mobility on left for inferior glide & extension. T/S facets stuck in R rotation . PT-OP-H Neuro Start: 09/09/18 12:33 Freq: Status: Active Protocol: Document 09/09/18 15:01 LRN (Rec: 09/09/18 16:33 LRN [id number]) Sensation Evaluation Gross Sensation Gross Sensation WNL PT-OP-J Posture/Palpation/Skin Start: 09/09/18 12:33 Freq: Status: Active Protocol: Document 09/09/18 15:01 LRN (Rec: 09/09/18 16:33 LRN [id number]) Posture Evaluation Position Standing Evaluation View All positions Head/C-Spine Posture Side Bent Left Forward Head T-Spine Posture Flattened Rotation Right Shoulder Posture (L) Rounded Arm Posture (L) Internally Rotated (R) Internally Rotated Pelvis Posture Anteriorly Tilted Weight Distribution Balanced Palpation Assessment Location L Intrascapular region Palpation Location R Intrascapular region Palpation Findings Soft Tissue Tightness L neck Palpation Location Paraspinals, and anterior/ posterior scalenes UT Palpation Findings Soft Tissue Tightness Tenderness R Intrascapular region Palpation Location R intrascapular region Palpation Findings Soft Tissue Tightness Tenderness PT-OP-K Range of Motion Start: 09/09/18 12:33 Freq: Status: Active Protocol: Document 09/09/18 15:01 LRN (Rec: 09/09/18 16:33 LRN [id number]) Cervical Spine Range of Motion Cervical Spine Active Percentage Testing Position Sitting Flexion 100 Extension 100 Rotation Left 100 Rotation Right 100 Lateral Flexion Left 84 Lateral Flexion Right 100 ROM Limitations Soft Tissue Tightness Comments AROM (in degrees): SB: 32 deg' s left, 38 deg's right. Lumbar Spine Range of Motion Lumbar Spine Active Degrees Testing Position Standing Comments Movement measured from C7 to L5. Trunk Flexion: 150 deg's FB taken at C7 with 110 deg's FB taken at L5 Trunk Ext: 75 deg's BB taken at C7 with 30 deg's BB taken at L5 Sidebending: Left - Thoracic spine is straight, Right - Thoracic spine is curved. Rotation: Left - Thoracic spine is straight, Right - Thoracic spine is curved. Shoulder Goniometric Range of Motion Shoulder Right Active Shoulder ROM WFL Yes Testing Position Sitting Internal Rotation Behind Back (text) T4 with thumb Left Active Shoulder ROM WFL Yes Testing Position Sitting Flexion 178 Internal Rotation Behind Back (text) T4 with thumb Shoulder ROM Limitations Shoulder ROM Limitations Soft Tissue Tightness Comments L shoulder flexion PT-OP-M Strength Start: 09/09/18 12:33 Freq: Status: Active Protocol: Document 09/09/18 15:01 LRN (Rec: 09/09/18 16:33 LRN [id number]) Cervical Spine Strength Cervical Spine Manual Muscle Testing Testing Position Sitting Reason Not Measured WFL Trunk Strength Trunk Manual Muscle Testing Testing Position Sitting Shoulder Strength Shoulder Manual Muscle Testing Right Reason Not Measured WFL Comments Pain on Contralateral intrascapular region (T3-T5) with testing. Pt is R hand dominant. Left Reason Not Measured WFL Comments Pain on Contralateral intrascapular region (T3-T5) with testing. PT-OP-Q Treatments Start: 09/09/18 12:33 Freq: Status: Active Protocol: Document 10/06/18 16:50 HH (Rec: 10/06/18 18:40 HH [email or web address]) Cardio Equipment Recumbent Stepper (Sci-Fit) Duration (Minutes) 5 Resistance 5 Therapeutic Exercises Prone Exercises prayer stretch Side bilateral Equipment Used against table Reps/Minutes 10 x2 Comments T/S extension stretch child pose and prone extension Side bilateral Reps/Minutes 20 x 2 cat camel Side bilateral Reps/Minutes 20 x2 prone W Side bilateral Reps/Minutes 10 x2 Comments chin tuck, scap retraction prone trunk extension Side bilateral Reps/Minutes 10 x2 Comments chin tuck, scap retraction prone scap retraction Side bilateral Reps/Minutes 10 x2 prone chin tuck Side bilateral Reps/Minutes 5 x 2 Comments cues on alignment Sidelying Exercises open book Side bilateral Reps/Minutes 10 x2 Comments cues on t/s rotation Standing Exercises scap retraction Side bilateral Equipment Used level4 band Reps/Minutes 10 x 2 Comments cues on chin tuck PT-OP-R Modalities Start: 09/09/18 12:33 Freq: Status: Active Protocol: Document 10/06/18 18:40 HH (Rec: 10/06/18 18:40 HH [email or web address]) Electric Stimulation Electric Stimulation Interferential Current (IFC) Body Location Both Rhomboids, Parathoracis Duration (Minutes) 15 Intensity 19 Combined With Heat/Cold Hot Pack PT-OP-T Assessment and Plan Start: 09/09/18 12:33 Freq: Status: Active Protocol: Document 10/06/18 16:50 HH (Rec: 10/06/18 18:40 HH [email or web address]) Physical Therapy Assessment Assessment Summary Assessment Pt has improved scapular strength, mobility in t/s. Progressed to scap, trunk extensors strengthening in prone position. New HEP given with prone W and prone extension. Physical Therapy Plan Next Visit Focus/Plan Next Note Type Treatment Note Next Visit Plan review HEP assess pt;s symptoms. cont scapular and trunk extensors strengthening
--- NOTE | 2018-10-08 09:38 | PT.OTN ---
Current Diagnoses Pain in thoracic spine (10/08/18) Physical Therapy Treatment Note PT-OP-A Visit Information Start: 09/09/18 12:33 Freq: Status: Active Protocol: Document 10/08/18 07:30 AMB (Rec: 10/08/18 13:15 AMB [email or web address]) Out-Patient Physical Therapy Visit Information Visit Information Visit Type Treatment Note Visit Start Time 07:30 Visit Stop Time 08:15 Total Visit Minutes 45 Visit Number 7 Number of RETAIL WIRELESS SALES REPRESENTATIVE Visits 0 PT-OP-B Current Condition Start: 09/09/18 12:33 Freq: Status: Active Protocol: Document 09/09/18 15:01 LRN (Rec: 09/09/18 16:33 LRN [id number]) Current Condition History of Current Condition Onset Date December 2017 Current Complaints Ache pain in the neck, posterior upper back across shoulders and radiates History of Current Condition Insidious onset of upper neck and posterior shoulder pain, bilaterally. Sometimes it radiates into the R shoulder and back of the arm. Pt is R handed. She thinks maybe it is because of ergonomics at work. No longer has that job of sitting at a desk. 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 She doesn't have to sit as much and can sit or stand to work. Overuse of R arm causes pain. Only supine lying alleviates the pain. Prior Treatments and Tests Did vision care associate for 3 months without resolution or help of pain alleviation. Chiropractic X-rays and was told she was not aligned. Massages have not helped. Future Testing and Treatments Planned Next appt with Dr Turcios is 09/23/18, but pt is planning on extending the date until at least 4 weeks of therapy is done. Treatment Goals Patient/Caregiver Goals Pt goal is to determine the problem and to treat it for full resolution of pain. Prior Functional Status Baseline Function- ADL's Independent Baseline Function- Mobility Independent Baseline Function- Recreation/Hobbies Play golf Current Functional Impairments (Reported) Functional Limitations- Work/School Hindering pt's capacity to function at full capacity. Functional Limitations- Recreation/ Limited in tolerance to knit Hobbies 15'. 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 R Breast surgery 1978 for benign tumor removal Foot surgeries. PT-OP-C Subjective Start: 09/09/18 12:33 Freq: Status: Active Protocol: Document 10/08/18 07:30 AMB (Rec: 10/08/18 13:15 AMB [email or web address]) OP-PT Subjective Patient Comments Patient Comments Pt thinks she is definitely getting better, much more mindful of her posture and has been doing her HEP, seeing Dr Abdirizak Turcios next week, but thinking next visit could be her last if she continues to feel good. PT-OP-E Functional Tests Start: 09/09/18 12:33 Freq: Status: Active Protocol: Document 09/09/18 15:01 LRN (Rec: 09/09/18 16:33 LRN [id number]) Functional Tests Apley's Scratch Test Action 2- Left T3 Action 2- Right T4 Action 3- Left T4 Action 3- Right T4 PT-OP-F Manual Assessment Start: 09/09/18 12:33 Freq: Status: Active Protocol: Document 09/09/18 15:01 LRN (Rec: 09/09/18 16:33 LRN [id number]) Manual Assessments Soft Tissue Assessment Soft Tissue Mobility Assessment Muscle guarding in R intrascapular region. Joint Mobility Assessment Joint Mobility Assessment Decreased T/S facet joint mobility on left for inferior glide & extension. T/S facets stuck in R rotation . PT-OP-H Neuro Start: 09/09/18 12:33 Freq: Status: Active Protocol: Document 09/09/18 15:01 LRN (Rec: 09/09/18 16:33 LRN [id number]) Sensation Evaluation Gross Sensation Gross Sensation WNL PT-OP-J Posture/Palpation/Skin Start: 09/09/18 12:33 Freq: Status: Active Protocol: Document 09/09/18 15:01 LRN (Rec: 09/09/18 16:33 LRN [id number]) Posture Evaluation Position Standing Evaluation View All positions Head/C-Spine Posture Side Bent Left Forward Head T-Spine Posture Flattened Rotation Right Shoulder Posture (L) Rounded Arm Posture (L) Internally Rotated (R) Internally Rotated Pelvis Posture Anteriorly Tilted Weight Distribution Balanced Palpation Assessment Location L Intrascapular region Palpation Location R Intrascapular region Palpation Findings Soft Tissue Tightness L neck Palpation Location Paraspinals, and anterior/ posterior scalenes UT Palpation Findings Soft Tissue Tightness Tenderness R Intrascapular region Palpation Location R intrascapular region Palpation Findings Soft Tissue Tightness Tenderness PT-OP-K Range of Motion Start: 09/09/18 12:33 Freq: Status: Active Protocol: Document 09/09/18 15:01 LRN (Rec: 09/09/18 16:33 LRN [id number]) Cervical Spine Range of Motion Cervical Spine Active Percentage Testing Position Sitting Flexion 100 Extension 100 Rotation Left 100 Rotation Right 100 Lateral Flexion Left 84 Lateral Flexion Right 100 ROM Limitations Soft Tissue Tightness Comments AROM (in degrees): SB: 32 deg' s left, 38 deg's right. Lumbar Spine Range of Motion Lumbar Spine Active Degrees Testing Position Standing Comments Movement measured from C7 to L5. Trunk Flexion: 150 deg's FB taken at C7 with 110 deg's FB taken at L5 Trunk Ext: 75 deg's BB taken at C7 with 30 deg's BB taken at L5 Sidebending: Left - Thoracic spine is straight, Right - Thoracic spine is curved. Rotation: Left - Thoracic spine is straight, Right - Thoracic spine is curved. Shoulder Goniometric Range of Motion Shoulder Right Active Shoulder ROM WFL Yes Testing Position Sitting Internal Rotation Behind Back (text) T4 with thumb Left Active Shoulder ROM WFL Yes Testing Position Sitting Flexion 178 Internal Rotation Behind Back (text) T4 with thumb Shoulder ROM Limitations Shoulder ROM Limitations Soft Tissue Tightness Comments L shoulder flexion PT-OP-M Strength Start: 09/09/18 12:33 Freq: Status: Active Protocol: Document 09/09/18 15:01 LRN (Rec: 09/09/18 16:33 LRN [id number]) Cervical Spine Strength Cervical Spine Manual Muscle Testing Testing Position Sitting Reason Not Measured WFL Trunk Strength Trunk Manual Muscle Testing Testing Position Sitting Shoulder Strength Shoulder Manual Muscle Testing Right Reason Not Measured WFL Comments Pain on Contralateral intrascapular region (T3-T5) with testing. Pt is R hand dominant. Left Reason Not Measured WFL Comments Pain on Contralateral intrascapular region (T3-T5) with testing. PT-OP-Q Treatments Start: 09/09/18 12:33 Freq: Status: Active Protocol: Document 10/08/18 07:30 AMB (Rec: 10/08/18 08:15 AMB [id number]) Cardio Equipment Recumbent Stepper (Sci-Fit) Duration (Minutes) 5 Resistance 5 Gym Equipment Cable Column (Body Solid) Rows Resistance 10# Reps/Time 1x15 Therapeutic Exercises Supine Exercises 2 Supine Exercise Name active pec stretch Reps/Minutes 2x15 Comments on foam roll vertical on spine 1 Supine Exercise Name self thoracic mob Reps/Minutes 30x3 Comments on foam roll into extension Prone Exercises prayer stretch Side bilateral Equipment Used against table Reps/Minutes 10 x2 Comments T/S extension stretch prone W Side bilateral Reps/Minutes 10 x2 Comments chin tuck, scap retraction prone chin tuck Side bilateral Reps/Minutes 5 x 2 Comments cues on alignment Other Exercises 3 Other Exercise Name W on therapy ball Reps/Minutes 2# Comments 1x10 2 Other Exercise Name countertop pushup Reps/Minutes 2x5 1 Other Exercise Name thread the needle Reps/Minutes 2x10 Comments quadruped PT-OP-R Modalities Start: 09/09/18 12:33 Freq: Status: Active Protocol: Document 10/06/18 18:40 HH (Rec: 10/06/18 18:40 HH [email or web address]) Electric Stimulation Electric Stimulation Interferential Current (IFC) Body Location Both Rhomboids, Parathoracis Duration (Minutes) 15 Intensity 19 Combined With Heat/Cold Hot Pack PT-OP-T Assessment and Plan Start: 09/09/18 12:33 Freq: Status: Active Protocol: Document 10/08/18 07:30 AMB (Rec: 10/10/18 09:38 AMB [email or web address]) Physical Therapy Assessment Assessment Summary Assessment Karen feels that she is managing her upper back pain much better now, she continues to need to focus on her posture at work. Physical Therapy Plan Next Visit Focus/Plan Next Visit Plan Possible d/c if pt is continuing to improve and is independent with HEP.
--- NOTE | 2018-10-13 19:03 | PT.OTN ---
Current Diagnoses Pain in thoracic spine (10/13/18) Physical Therapy Treatment Note PT-OP-A Visit Information Start: 09/09/18 12:33 Freq: Status: Active Protocol: Document 10/13/18 16:47 HH (Rec: 10/13/18 19:03 HH [email or web address]) Out-Patient Physical Therapy Visit Information Visit Information Visit Type Discharge Summary Visit Start Time 16:47 Visit Stop Time 15:20 Total Visit Minutes 33 Visit Number 8 Number of CRIME SCENE EVIDENCE TECHNICIAN Visits 0 PT-OP-B Current Condition Start: 09/09/18 12:33 Freq: Status: Active Protocol: Document 09/09/18 15:01 LRN (Rec: 09/09/18 16:33 LRN [id number]) Current Condition History of Current Condition Onset Date December 2017 Current Complaints Ache pain in the neck, posterior upper back across shoulders and radiates History of Current Condition Insidious onset of upper neck and posterior shoulder pain, bilaterally. Sometimes it radiates into the R shoulder and back of the arm. Pt is R handed. She thinks maybe it is because of ergonomics at work. No longer has that job of sitting at a desk. 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 She doesn't have to sit as much and can sit or stand to work. Overuse of R arm causes pain. Only supine lying alleviates the pain. Prior Treatments and Tests Did morning caregiver for 3 months without resolution or help of pain alleviation. Chiropractic X-rays and was told she was not aligned. Massages have not helped. Future Testing and Treatments Planned Next appt with Dr Turcios is 09/23/18, but pt is planning on extending the date until at least 4 weeks of therapy is done. Treatment Goals Patient/Caregiver Goals Pt goal is to determine the problem and to treat it for full resolution of pain. Prior Functional Status Baseline Function- ADL's Independent Baseline Function- Mobility Independent Baseline Function- Recreation/Hobbies Play golf Current Functional Impairments (Reported) Functional Limitations- Work/School Hindering pt's capacity to function at full capacity. Functional Limitations- Recreation/ Limited in tolerance to knit Hobbies 15'. 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 R Breast surgery 1978 for benign tumor removal Foot surgeries. PT-OP-C Subjective Start: 09/09/18 12:33 Freq: Status: Active Protocol: Document 10/13/18 16:47 HH (Rec: 10/13/18 19:03 HH [email or web address]) OP-PT Subjective Patient Comments Patient Comments Pt reports of no pain the past few days for the first time. Has a better understanding of her pain and positioning. Requested to be d/c from PT today. Patient Reported Progress Improving PT-OP-E Functional Tests Start: 09/09/18 12:33 Freq: Status: Active Protocol: Document 09/09/18 15:01 LRN (Rec: 09/09/18 16:33 LRN [id number]) Functional Tests Apley's Scratch Test Action 2- Left T3 Action 2- Right T4 Action 3- Left T4 Action 3- Right T4 PT-OP-F Manual Assessment Start: 09/09/18 12:33 Freq: Status: Active Protocol: Document 09/09/18 15:01 LRN (Rec: 09/09/18 16:33 LRN [id number]) Manual Assessments Soft Tissue Assessment Soft Tissue Mobility Assessment Muscle guarding in R intrascapular region. Joint Mobility Assessment Joint Mobility Assessment Decreased T/S facet joint mobility on left for inferior glide & extension. T/S facets stuck in R rotation . PT-OP-H Neuro Start: 09/09/18 12:33 Freq: Status: Active Protocol: Document 09/09/18 15:01 LRN (Rec: 09/09/18 16:33 LRN [id number]) Sensation Evaluation Gross Sensation Gross Sensation WNL PT-OP-J Posture/Palpation/Skin Start: 09/09/18 12:33 Freq: Status: Active Protocol: Document 09/09/18 15:01 LRN (Rec: 09/09/18 16:33 LRN [id number]) Posture Evaluation Position Standing Evaluation View All positions Head/C-Spine Posture Side Bent Left,Forward Head T-Spine Posture Flattened,Rotation Right Shoulder Posture (L) Rounded Arm Posture (L) Internally Rotated,(R) Internally Rotated Pelvis Posture Anteriorly Tilted Weight Distribution Balanced Palpation Assessment Location L Intrascapular region Palpation Location R Intrascapular region Palpation Findings Soft Tissue Tightness L neck Palpation Location Paraspinals, and anterior/ posterior scalenes UT Palpation Findings Soft Tissue Tightness, Tenderness R Intrascapular region Palpation Location R intrascapular region Palpation Findings Soft Tissue Tightness, Tenderness PT-OP-K Range of Motion Start: 09/09/18 12:33 Freq: Status: Active Protocol: Document 09/09/18 15:01 LRN (Rec: 09/09/18 16:33 LRN [id number]) Cervical Spine Range of Motion Cervical Spine Active Percentage Testing Position Sitting Flexion 100 Extension 100 Rotation Left 100 Rotation Right 100 Lateral Flexion Left 84 Lateral Flexion Right 100 ROM Limitations Soft Tissue Tightness Comments AROM (in degrees): SB: 32 deg' s left, 38 deg's right. Lumbar Spine Range of Motion Lumbar Spine Active Degrees Testing Position Standing Comments Movement measured from C7 to L5. Trunk Flexion: 150 deg's FB taken at C7 with 110 deg's FB taken at L5 Trunk Ext: 75 deg's BB taken at C7 with 30 deg's BB taken at L5 Sidebending: Left - Thoracic spine is straight, Right - Thoracic spine is curved. Rotation: Left - Thoracic spine is straight, Right - Thoracic spine is curved. Shoulder Goniometric Range of Motion Shoulder Right Active Shoulder ROM WFL Yes Testing Position Sitting Internal Rotation Behind Back (text) T4 with thumb Left Active Shoulder ROM WFL Yes Testing Position Sitting Flexion 178 Internal Rotation Behind Back (text) T4 with thumb Shoulder ROM Limitations Shoulder ROM Limitations Soft Tissue Tightness Comments L shoulder flexion PT-OP-M Strength Start: 09/09/18 12:33 Freq: Status: Active Protocol: Document 09/09/18 15:01 LRN (Rec: 09/09/18 16:33 LRN [id number]) Cervical Spine Strength Cervical Spine Manual Muscle Testing Testing Position Sitting Reason Not Measured WFL Trunk Strength Trunk Manual Muscle Testing Testing Position Sitting Shoulder Strength Shoulder Manual Muscle Testing Right Reason Not Measured WFL Comments Pain on Contralateral intrascapular region (T3-T5) with testing. Pt is R hand dominant. Left Reason Not Measured WFL Comments Pain on Contralateral intrascapular region (T3-T5) with testing. PT-OP-Q Treatments Start: 09/09/18 12:33 Freq: Status: Active Protocol: Document 10/13/18 16:47 HH (Rec: 10/13/18 19:03 HH [email or web address]) Therapeutic Exercises Prone Exercises prone superman Equipment Used on therapy ball Reps/Minutes 8 x2 Comments shd flexion and trunk ext bird dog Side bilateral Reps/Minutes 10 x2 Comments opposite UE and LE lift off prayer stretch Side bilateral Equipment Used against table Reps/Minutes 10 x2 Comments T/S extension stretch child pose and prone extension Side bilateral Reps/Minutes 20 x 2 Comments shd at end range flexion prone W Side bilateral Reps/Minutes 10 x2 Comments chin tuck, scap retraction prone trunk extension Side bilateral Reps/Minutes 10 x2 Comments chin tuck, scap retraction Standing Exercises deadlift Equipment Used 10 lbs weighted ball Reps/Minutes 6 x3 Comments cues on neutral spine. Other Exercises 1 Other Exercise Name thread the needle Reps/Minutes 2x10 Comments quadruped, full range of trunk rotation PT-OP-R Modalities Start: 09/09/18 12:33 Freq: Status: Active Protocol: Document 10/06/18 18:40 HH (Rec: 10/06/18 18:40 [email or web address]) Electric Stimulation Electric Stimulation Interferential Current (IFC) Body Location Both Rhomboids, Parathoracis Duration (Minutes) 15 Intensity 19 Combined With Heat/Cold Hot Pack PT-OP-T Assessment and Plan Start: 09/09/18 12:33 Freq: Status: Active Protocol: Document 10/13/18 16:47 HH (Rec: 10/13/18 19:03 [email or web address]) Physical Therapy Assessment Goals Five Detention Goal (LTG) Pt has good understanding of her sitting posture at work, she is aware to get up and move every 1/2 hour. LTG Duration goal met Four Propeller Layout Worker Goal (LTG) pt denies pain for the past few days. LTG Duration goal met Three Propeller Layout Worker Goal (LTG) Pt has not been knitting recnetly LTG Duration unable to assess Two Propeller Layout Worker Goal (LTG) Pt denies neck and upper back pain now. LTG Duration goal met One Propeller Layout Worker Goal (LTG) Pt actively comply to HEP daily with good techniques and body mechanics. LTG Duration goal met Progress Towards Goals Progress Towards Goals Goals Met Assessment Summary Assessment Pt progressed very well since IE. Able to be pain free and have good awareness of her positioning at work. She also complies to HEP and able to cont strengthen her posterior chain with her current HEP. D/ C from PT today Physical Therapy Plan Discharge Physical Therapy Discharge Reasons Goals Met
== END 2018-10-15 08:25 | disposition home or self-care (01) ==
LOC: PHYS 16:45
PROVIDERS: PCP Internal Medicine; Visit Provider Internal Medicine
DX: M54.6 Pain in thoracic spine (principal)
CPT/HCPCS: 97014; 97110; 97140; 97162; 97530; G0283

== ENCOUNTER → 2020-08-29 08:06 | Outpatient (CLI) | payer BC, SELFPAY ==
--- NOTE | 2020-08-29 | DI.MG.S_ITS ---
BILATERAL DIGITAL SCREENING MAMMOGRAM 3D/2D WITH CAD: 08/29/2020 CLINICAL: Routine screening. Family history of breast cancer. Comparison is made to exams dated: 10/05/2017 mammogram, 02/15/2016 mammogram, and 03/02/2014 mammogram - [facility]. The tissue of both breasts is heterogeneously dense. This may lower the sensitivity of mammography. Current study was also evaluated with a Computer Aided Detection (CAD) system. No significant masses, calcifications, or other findings are seen in either breast. There has been no significant interval change. IMPRESSION: NEGATIVE There is no mammographic evidence of malignancy. A 1 year screening mammogram is recommended. This exam was interpreted at Station ID: [id number]. NOTE: For mammograms, a report in lay terms will be sent to the patient. Approximately 15% of breast malignancies will not be visualized mammographically. In the management of a palpable breast mass, a negative mammogram must not discourage biopsy of a clinically suspicious lesion. Electronically Signed By: Jann owusu/yoan:08/29/2020 08:53:59 letter sent: Normal Exam ACR BI-RADS Category 1: Negative [id number]
== END ==
PROVIDERS: PCP Nurse Practitioner; Referring Provider Nurse Practitioner; Visit Provider Nurse Practitioner
DX: Z12.31 Encounter for screening mammogram for malignant neoplasm of breast (principal); Z80.3 Family history of malignant neoplasm of breast
CPT/HCPCS: 77063; 77067

== ENCOUNTER → 2020-09-15 08:38 | Outpatient (CLI) | payer BC, SELFPAY ==
[2020-09-15 09:40] LABS: Add Manual Diff / Slide Review NO; Basophils Absolute Auto 100 /uL (0-100); Eosinophils Absolute Auto 300 /uL (0-450); Eosinophils Percent Auto 4.7 % (2-4); Hematocrit 39.4 % (36-46); Hemoglobin 12.9 g/dL (12.0-16.0); Lymphocytes Absolute Auto 2900 /uL (1100-4500); Lymphocytes Percent Auto 41.3 % (25-40); Mean Corpuscular HGB Conc 32.9 % (30-36); Mean Corpuscular Volume 91.4 fL (80-100); Monocytes Absolute Auto 400 /uL (0-900); Monocytes Percent Auto 5.5 % (3-14); Neutrophils Absolute Auto 3400 /uL (1500-7000); Neutrophils Percent Auto 47.5 % (50-75); Platelet Count 254 X10^3/uL (150-400); Red Blood Cell Count 4.31 X10^6/uL (4.0-5.2); Red Cell Distribution Width 15.4 % (11.6-14.8); White Blood Cell Count 7.1 X10^3/uL (4.5-11.0)
[2020-09-15 10:05] LABS: Hemoglobin A1C% w Est Avg Glu 5.8 % (4.0-6.0)
[2020-09-15 10:07] LABS: Alanine Aminotransferase 26 IU/L (<35); Albumin 4.3 g/dL (3.5-5.0); Albumin Globulin Ratio 1.6 (1.0-2.8); Alkaline Phosphatase 71 U/L (38-126); Aspartate Aminotransferase 24 IU/L (14-36); BUN Creatinine Ratio 22.2 (6-22); Bilirubin Total 0.2 mg/dL (0.2-1.3); Blood Urea Nitrogen 14 mg/dL (7-17); Calcium 9.9 mg/dL (8.4-10.2); Carbon Dioxide 24 mmol/L (22-32); Chloride 111 mmol/L (98-107); Cholesterol 205 mg/dL (140-199); Estimated Glomerular Filt Rate > 60.0 mL/min (>60); Globulin 2.7 g/dL (1.7-4.1); Glucose 100 mg/dL (70-100); HDL Cholesterol 51 mg/dL (40-60); HEMOLYSIS < 15 (0-50); LDL Cholesterol Calculated 143 mg/dL (<100); Potassium 4.4 mmol/L (3.4-5.1); Sodium 143 mmol/L (137-145); Triglycerides 57 mg/dL (35-150)
[2020-09-15 10:23] LABS: Free T3, Triiodothyronine Free 2.72 pg/mL (2.77-5.27)
[2020-09-15 10:36] LABS: Thyroid Stimulating Hormone 1.87 uIU/mL (0.47-4.68)
== END ==
PROVIDERS: PCP Nurse Practitioner; Referring Provider Nurse Practitioner; Visit Provider Nurse Practitioner
DX: Z00.00 Encounter for general adult medical examination without abnormal findings (principal)
CPT/HCPCS: 36415; 80053; 80061; 83036; 84439; 84443; 84481; 85025

== ENCOUNTER → 2020-11-30 09:19 | Outpatient (CLI) | payer BC, SELFPAY ==
[2020-11-30 11:23] LABS: COVID19 -Nasal RAPID Negative (Negative)
== END ==
PROVIDERS: PCP Nurse Practitioner; Referring Provider Surgery; Visit Provider Surgery
DX: Z01.812 Encounter for preprocedural laboratory examination (principal); Z20.822 Contact with and (suspected) exposure to COVID-19
CPT/HCPCS: 87635; C9803

== ENCOUNTER 2020-12-03 06:50 | Day surgery (SDC) | payer BC, SELFPAY ==
[2020-12-03] VITALS (11 sets, daily range): BP systolic 114–151; BP diastolic 62–91; PULSE 62–88; RESP 10–16; TEMP 35.6–36.3; O2SAT 97–100; BMI 24.7
[2020-12-03] MEDS: LACTATED RINGERS 1,000 ML 42 ML IV (07:25)
--- NOTE | 2020-12-03 07:39 | PM.PREOP ---
Pre-operative Note Interval Note History & Physical reviewed/Exam performed by Physician: Yes Changes to H&P: No
[2020-12-03] MEDS: fentaNYL 250 MCG/5 ML INJ IV (07:49)
[2020-12-03] MEDS: MIDAZOLAM 5 MG/5 ML VIAL IV (07:50)
--- NOTE | 2020-12-03 08:24 | PM.OP.COLON ---
Operative Date/Time/Diagnoses Date of procedure: 12/03/20 Time of procedure: 08:24 Pre-op diagnosis: screening Post-op diagnosis: same Procedure & Clinicians Study performed: colonoscopy and hemorrhoidal banding x 2 Same procedure as scheduled: Yes Indications: screening, rectal bleeding Surgeon: Jhon Elizalde Procedure Notes Procedure in detail: Medications: Conscious sedation using 6mg IV midazolam and 250mcg IV of fentanyl The history and physical was performed/updated and the patient is ASA class is 2. The procedure was discussed in detail with the patient. Potential risks complications including infection, bleeding, missed diagnosis, perforation, need for surgery, and were explained. Their questions were answered and informed consent was obtained. Patient was brought to the procedure room and placed standard monitoring equipment. The patient's vital signs were monitored continuously throughout the entire procedure. Prior to starting time-out was performed. The patient was placed in the left lateral recumbent position. Procedural sedation was administered. Examination began with a thorough inspection of the perianal area there was no evidence of fissures, fistulae, external hemorrhoids or cutaneous malignancy. The colonoscopy scope was then placed into the anal canal and was advanced to the cecum, which was identified by the ileocecal valve, the appendiceal orifice and the confluence of the taenia. The scope was then slowly withdrawn examining colon thoroughly in all directions, irrigating it of any residual stool. FINDINGS 1. [place] Diverticulosis 2. No masses or polyps 3. Grade 2 internal hemorrhoids The patient tolerated the procedure well. They will be discharged once criteria are met. The prep was of good/excellent quality. The withdrawl time was 7 minutes. The sedation time was 21 minutes. Hemorrhoidal Banding The right anterior and posterior columns were consistent with grade 2 hemorrhoids. The anoscope was placed the pedicle was grasped and doubly ligated at the base with two rubber bands starting with the right anterior.. This was repeated for the right posterior column Specimen(s): none sent Complications: none Impression: hemorrhoids, diverticulosis Post-procedure Recommendations: Colonoscopy in 10 years Disposition: same day surgery
--- NOTE | 2020-12-03 09:25 | SUR.PHASEII ---
Pt ready to go, ride called, belly soft no rectal drainage, tolerated juice. Left unit in stable condition.
== END 2020-12-03 09:26 | disposition home or self-care (01) ==
PROVIDERS: PCP Nurse Practitioner; Referring Provider Surgery; Visit Provider Surgery
PROC: 0DJD8ZZ Inspection of Lower Intestinal Tract, Via Natural or Artificial Opening Endoscopic (ICD-10-PCS; CPT 45378; principal; 2020-12-03 07:45)
DX: Z12.11 Encounter for screening for malignant neoplasm of colon (principal); K64.1 Second degree hemorrhoids; K57.30 Diverticulosis of large intestine without perforation or abscess without bleeding
CPT/HCPCS: 46221; 45378; 99152; J2250; J3010

== ENCOUNTER → 2021-01-07 09:22 | Outpatient (CLI) | payer BC, SELFPAY ==
[2021-01-07 11:40] LABS: COVID19 -Nasal RAPID Negative (Negative)
== END ==
PROVIDERS: PCP Nurse Practitioner; Visit Provider Nurse Practitioner Family
DX: Z20.822 Contact with and (suspected) exposure to COVID-19 (principal)
CPT/HCPCS: 87635

== ENCOUNTER → 2021-01-25 09:10 | Outpatient (CLI) | payer BC, SELFPAY ==
[2021-01-25 10:55] LABS: Hematocrit 37.1 % (36-46); Hemoglobin 12.2 g/dL (12.0-16.0); Mean Corpuscular HGB Conc 32.8 % (30-36); Mean Corpuscular Hemoglobin 29.8 PG (26-34); Mean Corpuscular Volume 90.9 fL (80-100); Platelet Count 212 X10^3/uL (150-400); Red Blood Cell Count 4.09 X10^6/uL (4.0-5.2); Red Cell Distribution Width 15.3 % (11.6-14.8); White Blood Cell Count 7.7 X10^3/uL (4.5-11.0)
[2021-01-25 11:07] LABS: Alanine Aminotransferase 19 IU/L (<35); Albumin 4.2 g/dL (3.5-5.0); Albumin Globulin Ratio 1.5 (1.0-2.8); Alkaline Phosphatase 62 U/L (38-126); Aspartate Aminotransferase 22 IU/L (14-36); BUN Creatinine Ratio 18.1 (6-22); Bilirubin Total 0.3 mg/dL (0.2-1.3); Blood Urea Nitrogen 13 mg/dL (7-17); Calcium 9.3 mg/dL (8.4-10.2); Carbon Dioxide 23 mmol/L (22-32); Chloride 108 mmol/L (98-107); Cholesterol 217 mg/dL (140-199); Estimated Glomerular Filt Rate > 60.0 mL/min (>60); Globulin 2.8 g/dL (1.7-4.1); Glucose 96 mg/dL (70-100); HDL Cholesterol 42 mg/dL (40-60); HEMOLYSIS < 15 (0-50); LDL Cholesterol Calculated 158 mg/dL (<100); Sodium 140 mmol/L (137-145); Triglycerides 83 mg/dL (35-150)
== END ==
PROVIDERS: PCP Nurse Practitioner; Referring Provider Nurse Practitioner; Visit Provider Nurse Practitioner
DX: E78.5 Hyperlipidemia, unspecified (principal); R94.5 Abnormal results of liver function studies; Z79.899 Other long term (current) drug therapy
CPT/HCPCS: 36415; 80053; 80061; 85027

== ENCOUNTER → 2021-05-01 08:59 | Outpatient (CLI) | payer BC, SELFPAY ==
[2021-05-01 11:03] LABS: Alanine Aminotransferase 19 IU/L (<35); Albumin 4.2 g/dL (3.5-5.0); Albumin Globulin Ratio 1.7 (1.0-2.8); Alkaline Phosphatase 66 U/L (38-126); Aspartate Aminotransferase 22 IU/L (14-36); BUN Creatinine Ratio 19.2 (6-22); Bilirubin Total 0.3 mg/dL (0.2-1.3); Blood Urea Nitrogen 14 mg/dL (7-17); Calcium 9.3 mg/dL (8.4-10.2); Carbon Dioxide 26 mmol/L (22-32); Chloride 108 mmol/L (98-107); Cholesterol 174 mg/dL (140-199); Estimated Glomerular Filt Rate > 60.0 mL/min (>60); Globulin 2.5 g/dL (1.7-4.1); Glucose 93 mg/dL (70-100); HDL Cholesterol 40 mg/dL (40-60); HEMOLYSIS < 15 (0-50); LDL Cholesterol Calculated 121 mg/dL (<100); Potassium 4.3 mmol/L (3.4-5.1); Sodium 142 mmol/L (137-145); Total Protein 6.7 g/dL (6.3-8.2); Triglycerides 67 mg/dL (35-150)
== END ==
PROVIDERS: PCP Nurse Practitioner; Referring Provider Nurse Practitioner; Visit Provider Nurse Practitioner
DX: E78.5 Hyperlipidemia, unspecified (principal); Z79.899 Other long term (current) drug therapy
CPT/HCPCS: 36415; 80053; 80061

== ENCOUNTER → 2021-07-30 07:42 | Outpatient (CLI) | payer BC, SELFPAY ==
[2021-07-30 09:14] LABS: Cholesterol 211 mg/dL (140-199); HDL Cholesterol 39 mg/dL (40-60); LDL Cholesterol Calculated 157 mg/dL (<100); Triglycerides 77 mg/dL (35-150)
== END ==
PROVIDERS: PCP Nurse Practitioner; Referring Provider Nurse Practitioner; Visit Provider Nurse Practitioner
DX: E78.5 Hyperlipidemia, unspecified (principal); Z79.899 Other long term (current) drug therapy
CPT/HCPCS: 36415; 80061

== ENCOUNTER → 2021-10-23 07:13 | Outpatient (CLI) | payer BC, SELFPAY ==
[2021-10-23 09:37] LABS: Alanine Aminotransferase 21 IU/L (<35); Albumin Globulin Ratio 1.4 (1.0-2.8); Alkaline Phosphatase 70 U/L (38-126); Aspartate Aminotransferase 22 IU/L (14-36); BUN Creatinine Ratio 18.8 (6-22); Bilirubin Total 0.3 mg/dL (0.2-1.3); Blood Urea Nitrogen 13 mg/dL (7-17); Calcium 9.2 mg/dL (8.4-10.2); Carbon Dioxide 26 mmol/L (22-32); Chloride 109 mmol/L (98-107); Cholesterol 183 mg/dL (140-199); Estimated Glomerular Filt Rate > 60 mL/min (>60); Globulin 2.8 g/dL (1.7-4.1); Glucose 101 mg/dL (80-110); HDL Cholesterol 37 mg/dL (40-60); HEMOLYSIS < 15 (0-50); LDL Cholesterol Calculated 132 mg/dL (<100); Potassium 4.3 mmol/L (3.4-5.1); Sodium 142 mmol/L (137-145); Total Protein 6.8 g/dL (6.3-8.2); Triglycerides 69 mg/dL (35-150)
== END ==
PROVIDERS: PCP Nurse Practitioner; Referring Provider Nurse Practitioner; Visit Provider Nurse Practitioner
DX: E78.5 Hyperlipidemia, unspecified (principal); Z79.899 Other long term (current) drug therapy
CPT/HCPCS: 36415; 80053; 80061

== ENCOUNTER → 2023-04-20 11:11 | Outpatient (CLI) | payer BC, SELFPAY ==
--- NOTE | 2023-04-20 11:12 | DI.MG.S_ITS ---
BILATERAL DIGITAL SCREENING MAMMOGRAM 3D/2D WITH CAD: 04/20/2023 CLINICAL: Routine screening. Family history of breast cancer. Comparison is made to exams dated: 08/29/2020 mammogram, 10/05/2017 mammogram, and 02/15/2016 mammogram - [facility]. Both breasts are heterogeneously dense, which may obscure small masses (category c / 51-75% glandular tissue). Current study was also evaluated with a Computer Aided Detection (CAD) system. There are benign post operative findings in the right breast. No significant masses, calcifications, or other findings are seen in either breast. There has been no significant interval change. IMPRESSION: BENIGN There is no mammographic evidence of malignancy. A 1 year screening mammogram is recommended. Based on Tyrer-Cuzick model (a risk assessment model), the patient's lifetime risk is 31.6% and her 10 year risk is 14.2%. If a patient has an elevated risk, a more comprehensive evaluation should be considered and/or a referral to a genetic counselor. The [place] [employer], [place] [employer], and NCCN Guidelines advise the consideration of Breast MRI as an adjunct to screening mammography in patients whose Lifetime risk to develop breast cancer is 20% or higher. This exam was interpreted at Station ID: [id number]. NOTE: For mammograms, a report in lay terms will be sent to the patient. Approximately 15% of breast malignancies will not be visualized mammographically. In the management of a palpable breast mass, a negative mammogram must not discourage biopsy of a clinically suspicious lesion. Electronically Signed By: Katharina perry/yoan:04/20/2023 12:39:10 letter sent: Normal Exam ACR BI-RADS Category 2: Benign Finding(s) 3342F
== END ==
PROVIDERS: PCP Nurse Practitioner; Referring Provider Nurse Practitioner; Visit Provider Nurse Practitioner
DX: Z12.31 Encounter for screening mammogram for malignant neoplasm of breast (principal); Z80.3 Family history of malignant neoplasm of breast; R92.333 Mammographic heterogeneous density, bilateral breasts
CPT/HCPCS: 77063; 77067

== ENCOUNTER → 2023-06-04 13:49 | Outpatient (CLI) | payer BC, SELFPAY ==
--- NOTE | 2023-06-04 13:49 | DI.CT.S_ITS ---
PROCEDURE: CT LUNG LOW DOSE SCREENING INDICATIONS: tobacco use disorder TECHNIQUE: Noncontrast 2.0-2.5 mm thick sections acquired from the pulmonary apices to the posterior costophrenic angles. 7 mm thick axial MIP, and 5 mm coronal and sagittal reformats were then acquired. For radiation dose reduction, the following was used: automated exposure control, adjustment of mA and/or kV according to patient size. COMPARISON: None. FINDINGS: Image quality: Diagnostic. Lower Neck: No enlarged lymph nodes. Thyroid: No thyroid nodules which require sonographic follow up, per consensus guidelines. Axillae: No enlarged lymph nodes. Chest Wall: Unremarkable. Bones: Unremarkable. Lungs and Pleura: No pneumothorax or pleural effusions. No consolidation or suspicious nodules. Heart: Heart size is normal. No pericardial effusion. Thoracic Vessels: The aorta and pulmonary arteries demonstrate normal size. Mediastinum and Debbie: No enlarged lymph nodes. Esophagus: No wall thickening. No hiatal hernia. Upper Abdomen: Visualized upper abdomen solid organs and bowel loops appear normal. IMPRESSION: No suspicious pulmonary nodules. LUNG-RADS 1; continued annual screening, if eligible. Clinically Significant Non-pulmonary Findings: None. Dictated by: Katharina Estrella M.D. on 06/04/2023 at 15:46 Approved by: Katharina Estrella M.D. on 06/04/2023 at 15:49
== END ==
LOC: CT 13:49
PROVIDERS: PCP Nurse Practitioner; Referring Provider Nurse Practitioner; Visit Provider Nurse Practitioner
DX: F17.210 Nicotine dependence, cigarettes, uncomplicated (principal); Z12.2 Encounter for screening for malignant neoplasm of respiratory organs
CPT/HCPCS: 71271

== ENCOUNTER → 2023-09-04 07:18 | Outpatient (CLI) | payer BC, SELFPAY ==
[2023-09-04 08:15] LABS: Hemoglobin A1C% w Est Avg Glu 5.9 % (4.0-6.0)
[2023-09-04 08:26] LABS: Alanine Aminotransferase 16 IU/L (<35); Albumin 4.2 g/dL (3.5-5.0); Albumin Globulin Ratio 1.8 (1.0-2.8); Alkaline Phosphatase 83 U/L (38-126); Aspartate Aminotransferase 20 IU/L (14-36); BUN Creatinine Ratio 15.8 (6-22); Bilirubin Total 0.4 mg/dL (0.2-1.3); Blood Urea Nitrogen 12 mg/dL (7-17); Carbon Dioxide 21 mmol/L (22-32); Chloride 111 mmol/L (98-107); Cholesterol 177 mg/dL (140-199); Estimated Glomerular Filt Rate > 60 mL/min (>60); Globulin 2.4 g/dL (1.7-4.1); Glucose 91 mg/dL (80-110); HDL Cholesterol 48 mg/dL (40-60); HEMOLYSIS < 15 (0-50); LDL Cholesterol Calculated 116 mg/dL (<100); Potassium 4.3 mmol/L (3.4-5.1); Sodium 141 mmol/L (137-145); Total Protein 6.6 g/dL (6.3-8.2); Triglycerides 65 mg/dL (35-150)
== END ==
PROVIDERS: PCP Nurse Practitioner; Referring Provider Nurse Practitioner; Visit Provider Nurse Practitioner
DX: I10 Essential (primary) hypertension (principal); E78.5 Hyperlipidemia, unspecified; R73.9 Hyperglycemia, unspecified; Z79.899 Other long term (current) drug therapy
CPT/HCPCS: 36415; 80053; 80061; 83036

== ENCOUNTER → 2023-10-16 07:05 | Outpatient (CLI) | payer BC, SELFPAY ==
[2023-10-16 08:34] LABS: Alanine Aminotransferase 18 IU/L (<35); Albumin 4.1 g/dL (3.5-5.0); Albumin Globulin Ratio 1.7 (1.0-2.8); Alkaline Phosphatase 82 U/L (38-126); Aspartate Aminotransferase 23 IU/L (14-36); Bilirubin Total 0.3 mg/dL (0.2-1.3); Blood Urea Nitrogen 15 mg/dL (7-17); Calcium 9.6 mg/dL (8.4-10.2); Carbon Dioxide 21 mmol/L (22-32); Chloride 109 mmol/L (98-107); Cholesterol 142 mg/dL (140-199); Estimated Glomerular Filt Rate > 60 mL/min (>60); Globulin 2.4 g/dL (1.7-4.1); Glucose 95 mg/dL (80-110); HDL Cholesterol 40 mg/dL (40-60); HEMOLYSIS < 15 (0-50); LDL Cholesterol Calculated 90 mg/dL (<100); Potassium 4.2 mmol/L (3.4-5.1); Sodium 139 mmol/L (137-145); Total Protein 6.5 g/dL (6.3-8.2); Triglycerides 59 mg/dL (35-150)
[2023-10-16 09:30] LABS: Hemoglobin A1C% w Est Avg Glu 5.5 % (4.0-6.0)
== END ==
PROVIDERS: PCP Nurse Practitioner; Referring Provider Nurse Practitioner; Visit Provider Nurse Practitioner
DX: I10 Essential (primary) hypertension (principal); E78.5 Hyperlipidemia, unspecified; R73.03 Prediabetes
CPT/HCPCS: 36415; 80053; 80061; 83036

== ENCOUNTER → 2024-05-06 07:14 | Outpatient (CLI) | payer BC, SELFPAY ==
[2024-05-06 07:51] LABS: Hemoglobin A1C% w Est Avg Glu 5.3 % (4.0-6.0)
[2024-05-06 07:54] LABS: Cholesterol 159 mg/dL (140-199); HDL Cholesterol 45 mg/dL (40-60); LDL Cholesterol Calculated 97 mg/dL (<100); Triglycerides 87 mg/dL (35-150)
== END ==
PROVIDERS: PCP Nurse Practitioner Family; Referring Provider Nurse Practitioner Family; Visit Provider Nurse Practitioner Family
DX: I10 Essential (primary) hypertension (principal); F17.209 Nicotine dependence, unspecified, with unspecified nicotine-induced disorders; R73.03 Prediabetes; Z91.89 Other specified personal risk factors, not elsewhere classified; E78.5 Hyperlipidemia, unspecified
CPT/HCPCS: 36415; 80061; 83036

== ENCOUNTER → 2024-05-26 07:43 | Outpatient (CLI) | payer BC, SELFPAY ==
--- NOTE | 2024-05-26 07:45 | DI.MG.S_ITS ---
MM screening mammo BI: 05/26/2024. BI-RADS: 1 CLINICAL: 64-year old female for bilateral screening mammogram. Tyrer-Cuzick lifetime risk of 29.8%. Current reported family history of breast cancer: maternal grandmother, paternal grandmother and mother. The patient had a prior right breast biopsy. PRIOR EXAMS 04/20/2023, 08/29/2020, 10/05/2017, 02/15/2016. MAMMOGRAPHY TECHNIQUE: 2D and 3D (tomosynthesis) digital mammographic views obtained, with additional images as needed for full coverage. Current study was also evaluated with a Computer Aided Detection (CAD) system. DENSITY C. The breasts are heterogeneously dense, which may obscure small masses. MAMMOGRAPHY FINDINGS Bilateral: No suspicious mass, asymmetry, microcalcification, or other abnormality seen. No significant change from comparison. IMPRESSION: * No evidence of malignancy. RECOMMENDATIONS Bilateral * According to the Tyrer-Cuzick Risk Assessment Model, based on the information provided your patient has a greater than 20% lifetime risk for developing breast cancer. Consider supplemental screening with breast MRI and participation in a high risk screening program. * Annual screening mammography. OVERALL ASSESSMENT CATEGORY BI-RADS-1: Negative. The [employer] recommends annual screening mammography beginning at age 40 for women with average risk of breast cancer. ELECTRONICALLY SIGNED: Alice Joaquin M.D. on 05/26/2024 at 08:49:29 AM PT Interpreting Station ID: [id number]
== END ==
PROVIDERS: PCP Nurse Practitioner Family; Referring Provider Nurse Practitioner Family; Visit Provider Nurse Practitioner Family
DX: Z12.31 Encounter for screening mammogram for malignant neoplasm of breast (principal); Z80.3 Family history of malignant neoplasm of breast; R92.333 Mammographic heterogeneous density, bilateral breasts
CPT/HCPCS: 77063; 77067

== ENCOUNTER → 2024-06-28 08:55 | Outpatient (CLI) | payer BC, SELFPAY ==
--- NOTE | 2024-06-28 08:56 | DI.MRI.S_ITS ---
MR breast BI wo/w con: 06/28/2024. BI-RADS: 1 CLINICAL: 64-year old female for bilateral diagnostic breast MRI. Current reported family history of breast cancer: maternal grandmother, paternal grandmother and mother. The patient had a prior right breast biopsy. PRIOR EXAMS: Mammogram(s): 05/26/2024. Four Other Exams on 04/20/2023, 08/29/2020, 10/05/2017, 02/15/2016. MRI TECHNIQUE: Bilateral breast MRI was performed on a 1.5 Azra magnet using a dedicated breast coil with mild compression. Axial T1 and T2 STIR sequences were obtained. Dynamic contrast enhanced VIBRANT fat-suppressed sequences were obtained. Delayed sagittal high resolution or sagittal reconstructed isotropic sequence was also obtained. Subtraction images and maximum intensity projection images were obtained. The study was evaluated using [employer] software. FIBROGLANDULAR TISSUE Bilateral: C. Heterogeneous fibroglandular tissue. BACKGROUND PARENCHYMAL ENHANCEMENT Bilateral: Mild symmetrical background parenchymal enhancement. BREAST FINDINGS Bilateral: No suspicious mass, suspicious non-mass enhancement, or other concerning finding identified. IMPRESSION: * No evidence of malignancy. RECOMMENDATIONS Bilateral * According to the Tyrer-Cuzick Risk Assessment Model, based on the information provided your patient has a greater than 20% lifetime risk for developing breast cancer. Consider supplemental screening with breast MRI and participation in a high risk screening program. * Annual screening mammography. OVERALL ASSESSMENT CATEGORY BI-RADS-1: Negative. ELECTRONICALLY SIGNED: Valeria Little M.D. on 07/04/2024 at 04:43:34 PM PT Interpreting Station ID: [id number]
== END ==
LOC: MRI 08:55
PROVIDERS: PCP Nurse Practitioner Family; Referring Provider Nurse Practitioner Family; Visit Provider Nurse Practitioner Family
DX: R92.8 Other abnormal and inconclusive findings on diagnostic imaging of breast (principal); R92.333 Mammographic heterogeneous density, bilateral breasts; Z80.3 Family history of malignant neoplasm of breast; Z87.891 Personal history of nicotine dependence
CPT/HCPCS: 77049; A9579